=== PATIENT | male | born 1955 | race Caucasian/White ===

== ENCOUNTER → 2020-04-16 | Outpatient (CLI) | payer BC ==
--- NOTE | 2020-04-16 14:10 | Diagnostic Imaging Report ---
EXAMINATION: PA and lateral chest at 1:40 p.m. INDICATION: Dyspnea. FINDINGS: The heart size is within normal limits and stable when compared to 02/20/2007. The lungs are generally clear. There is no evidence for failure, pneumonia or for a pleural effusion. The mediastinum is not widened. The osseous structures are intact. IMPRESSION: There is no evidence for active disease. Dictated by: Dictated on workstation # [id number]
== END ==
LOC: RAD 13:18
PROVIDERS: ATTEND Internal Medicine
DX: R06.00 Dyspnea, unspecified (principal); R05 Cough
CPT/HCPCS: 71046

== ENCOUNTER → 2020-05-06 | Outpatient (CLI) | payer BC ==
--- NOTE | 2020-05-06 09:25 | Diagnostic Imaging Report ---
INDICATION: Right lower lobe pneumonia. EXAMINATION: PA and lateral views of the chest. FINDINGS: The heart size and vascularity are normal. Lungs are clear. There is no effusion. There is no acute bony abnormality. IMPRESSION: No acute abnormality is seen. There is no change from 04/16/2020. Dictated by: Dictated on workstation # [id number]
== END ==
LOC: RAD 08:53
PROVIDERS: ATTEND Internal Medicine
DX: J18.1 Lobar pneumonia, unspecified organism (principal)
CPT/HCPCS: 71046

== ENCOUNTER → 2020-07-22 | Outpatient (CLI) | payer BC ==
--- NOTE | 2020-07-22 11:15 | Diagnostic Imaging Report ---
HISTORY: Pneumonia. COMPARISON: 05/06/2020. TECHNIQUE: Two views of the chest. FINDINGS: There is elevation of the right hemidiaphragm. There are chronic-appearing interstitial opacities in the lungs, likely chronic fibrotic changes. No new consolidation is seen. There is no pleural effusion or pneumothorax. The cardiac silhouette is normal in size. IMPRESSION: 1. Chronic findings in the lungs with no acute pulmonary abnormality seen. Dictated by: Dictated on workstation # [id number]
== END ==
LOC: RAD 10:31
PROVIDERS: ATTEND Internal Medicine
DX: J18.1 Lobar pneumonia, unspecified organism (principal); E78.2 Mixed hyperlipidemia; R73.03 Prediabetes
CPT/HCPCS: 71046

== ENCOUNTER → 2020-08-03 | Outpatient (CLI) | payer BC ==
--- NOTE | 2020-08-03 12:47 | Diagnostic Imaging Report ---
EXAMINATION: CT chest without contrast. TECHNIQUE: Multiple contiguous axial images were obtained through the chest without the use of intravenous contrast. All CT scans use one or more of the following dose optimizing techniques: automated exposure control, MA and/or KvP adjustment based on patient size and exam type or iterative reconstruction. HISTORY: Pneumonia. COMPARISON: None available. FINDINGS: There is mild emphysema. Peribronchial vascular thickening and septal line thickening in the lung bases is consistent with mild pulmonary edema. No consolidation is seen to indicate pneumonia. No pleural effusion. No pneumothorax. No suspicious nodules. There is no axillary or supraclavicular lymphadenopathy. There is no mediastinal lymphadenopathy. Left ventricle is mildly dilated. There are moderate coronary artery calcifications. No pericardial effusion. Ascending aorta is 4.1 cm, upper limits of normal in caliber. Limited views of the upper abdomen are unremarkable. There are no suspicious osseous lesions. IMPRESSION: 1. Emphysema with superimposed mild pulmonary edema. 2. No consolidation to indicate pneumonia. Dictated by: Dictated on workstation # [id number]
== END ==
LOC: RAD 08:15
PROVIDERS: ATTEND Internal Medicine
DX: J43.9 Emphysema, unspecified (principal); J81.1 Chronic pulmonary edema; J18.1 Lobar pneumonia, unspecified organism
CPT/HCPCS: 71250

== ENCOUNTER → 2020-08-13 | Outpatient (CLI) | payer BC | LOC: CARD 13:15 | PROVIDERS: ATTEND Internal Medicine | DX: I35.1 Nonrheumatic aortic (valve) insufficiency (principal) | CPT/HCPCS: 93306 ==

== ENCOUNTER → 2020-08-25 | Outpatient (CLI) | payer BC ==
[~2020-08-25] MED LIST: RT-ALBUTEROL SULF 2.5 MG/3 ML PRE-MIX VIAL INH ONE
== END ==
LOC: RT 07:44
PROVIDERS: ATTEND Internal Medicine
DX: R06.00 Dyspnea, unspecified (principal)
CPT/HCPCS: 94060; 94726; 94729

== ENCOUNTER → 2020-11-03 | Outpatient (CLI) | payer BC ==
[2020-11-03] MEDS: RT-ALBUTEROL SULF 2.5 MG/3 ML PRE-MIX VIAL INH ONE (10:13)
== END ==
LOC: RT 09:02
DX: J84.10 Pulmonary fibrosis, unspecified (principal); J84.9 Interstitial pulmonary disease, unspecified
CPT/HCPCS: 94060; 94726; 94729

== ENCOUNTER 2020-12-10 15:11 | Outpatient (RCR) | payer BC | END 2020-12-10 15:55 | disposition home or self-care (01) | PROVIDERS: ATTEND Internal Medicine Critical Care Medicine | DX: J84.9 Interstitial pulmonary disease, unspecified (principal); J84.10 Pulmonary fibrosis, unspecified; R09.02 Hypoxemia ==

== ENCOUNTER 2021-01-03 09:50 | Emergency (ER) | payer BC ==
[~2021-01-03] VITALS: Ht 167.7 cm; Wt 80.9 kg
--- OUTSIDE RECORDS SUMMARY | 2021-01-03 10:02 | XMS REPORT | Clinical Summary ---
Author Author [facility] Organization [facility] Address Unknown Phone Unavailable Care Team Providers Care Allergy And Immunology Chief Name Role Phone Sedrick Ortiz MD Unavailable No Pcp, Na PCP Unavailable Source Comments Some departments are not documenting in the electronic medical record. If you d o not see the information that you expected, contact Release of Information in [facility] [employer] Information Management department at [phone] for further assistan ce in locating additional records.[facility] Allergies No Known Active Allergies Medications End Date Status Medication Sig Dispensed Refills Start Date Active gemfibrozil (LOPID) 600 Take 1,200 mg 0 mg tablet by mouth twice daily. Active niacin 750 mg TbER Take 2,500 mg 0 by mouth. Active aspirin 81 mg chewable Take 81 mg by 0 tablet mouth daily. Active LORATADINE (CLARITIN PO) Take by 0 mouth. Active DOCOSAHEXANOIC ACID/EPA Take by 0 (FISH OIL PO) mouth. Active vitamins, B complex tab Take 1 tablet 0 by mouth daily. 12/08/2020 Discontinued (Patient's Glynn ce) vitamins, multi Take 1 Tab by 0 w/minerals tablet mouth daily. Active Problems Problem Noted Date Exposure to environmental hazard 12/09/2020 Hiatal hernia 12/09/2020 ILD (interstitial lung disease) 12/09/2020 Rotator cuff tear, right 02/01/2015 Pulmonary fibrosis Encounters Care Team Description Date Type Specialty Charles Tran MD Hemoptysis 01/03/2021 Telephone Pulmonology Pedro Salazar MD BRONCHOSCOPY DIAGNOSTIC WITH CELL WASHIN G - FLEXIBLE 12/24/2020 Surgery Richard Ordonez MD 12/24/2020 Anesthesia Event Pedro Salazar MD Pulmonary fibrosis ([facility]) 12/24/2020 Hospital Encounter 12/24/2020 Travel Griffin Tripp MD 12/21/2020 Hospital Lab Encounter Griffin Tripp MD Encounter for screening laboratory testi ng for COVID-19 virus in asymptomatic patient 12/21/2020 Nurse Only Urgent Care 12/21/2020 Travel Griffin Tripp MD Procedure (Bronch w/BAL, TBB w/Cryobiops y and Envisia testing) 12/09/2020 Telephone Pulmonology Griffin Tripp MD Pulmonary fibrosis ([facility]) (Primary Dx); Encounter for screening laboratory testing for COVID-19 virus in asymptomatic patient; Hypersensitivity pneumonitis ([facility]) 12/09/2020 Prep for Case Pulmonology Griffin Tripp MD Pulmonary fibrosis ([facility]); Exposure to environmental hazard; Hiatal hernia; ILD (interstitial lung disease) ([facility]) 12/08/2020 Office Visit Pulmonology Telehealth Griffin Tripp MD Records Request ([facility] ) 12/07/2020 Telephone Pulmonology 11/08/2020 Hospital Radiology Encounter from Last 3 Months Immunizations Name Administration Dates Next Due Surgical History Surgery Date Site/Laterality Comments BRONCHOSCOPY 12/24/2020 Bronchus/N/A BRONCHOSCOPY DI AGNOSTIC WITH CELL WASHING - FLEXIBLE performed by Pedro Salazar M D at [facility] OR BRONCHOSCOPY 12/24/2020 Bronchus/N/A BRONCHOSCOPY WI TH BRONCHIAL ALVEOLAR LAVAGE - FLEXIBLE performed by Pedro Salazar M D at [facility] OR BRONCHOSCOPY 12/24/2020 Bronchus/N/A BRONCHOSCOPY WI TH TRANSBRONCHIAL LUNG BIOPSY - FLEXIBLE - SINGLE LOBE performed by Pedro Armijo MD at [facility] OR BRONCHOSCOPY 12/24/2020 Bronchus/N/A BRONCHOSCOPY WI TH TRANSBRONCHIAL LUNG BIOPSY - FLEXIBLE - EACH ADDITIONAL LOBE perform ed by Pedro Salazar MD at [facility] OR Medical History Medical History Date Comments Pneumonia Seasonal allergic reaction Hypertriglyceridemia Prediabetes Pulmonary fibrosis ([facility]) Family History Medical History Relation Name Comments Cancer Brother Relation Name Status Comments Brother Social History Date Tobacco Use Types Packs/Day Years Used Quit: 2017 Former Smoker Cigarettes 1 42 Smokeless Tobacco: Never Used Tobacco Cessation: Counseling Given: Yes Comments Alcohol Use Standard Drinks/Week Not Currently 0 (1 standard drink = 0.6 o z pure alcohol) Sex Assigned at Date Recorded Male 12/01/2020 7:52 AM CDT Date Recorded COVID-19 Exposure Response 12/24/2020 8:26 AM CDT In the last month, have you been in contact with No / Unsure someone who was confirmed or suspected to have Coronavirus / COVID-19? Last Filed Vital Signs Reading Time Taken Comments Vital Sign 91/63 12/24/2020 11:00 AM CDT Blood Pressure 72 12/24/2020 11:00 AM CDT Pulse 37.1 C (98.7 F) 12/24/2020 11:00 AM CDT Temperature - - Respiratory Rate 92% 12/24/2020 11:00 AM CDT Oxygen Saturation - - Inhaled Oxygen Concentration 80.6 kg (177 lb 11.1 oz) 12/24/2020 8:22 AM CDT Weight 167.6 cm (5' 6") 12/24/2020 8:22 AM CDT Height 28.68 12/24/2020 8:22 AM CDT Body Mass Index Plan of Treatment Health Maintenance Due Date Last Done Comments HIV SCREENING 09/15/1971 DTAP/TDAP VACCINES (1 - 1974 Tdap) HEPATITIS C SCREENING 1974 PHYSICAL (COMPREHENSIVE) 1974 EXAM COLORECTAL CANCER 2006 SCREENING SHINGLES RECOMBINANT 2006 VACCINE (1 of 2) INFLUENZA VACCINE 10/10/2020 12/27/2019, 11/29/2018, 12/14/2017 COVID-19 VACCINE Completed 06/18/2020, 05/21/2020 Procedures Comments Procedure Name Priority Date/Time Associated Diag nosis CHEST SINGLE VIEW Routine 12/24/2020 10:42 AM CDT HC LVL IV SRG PTH, GROSS Routine 12/24/2020 & MICRO 10:30 AM CDT HC NON-ATTENDANT HONOR BAR/THIN PREP Routine 12/24/2020 10:30 AM CDT FLUORO MOBILE IN OR Routine 12/24/2020 10:21 AM CDT CULTURE-TB (AFB) Routine 12/24/2020 10:21 AM CDT CYTOLOGY SPECIMEN LABEL Routine 12/24/2020 9:30 AM CDT HC CELL COUNT Routine 12/24/2020 W/DIFF-FLUIDS 9:30 AM CDT HC CMV DNA QN BY PCR Routine 12/24/2020 9:30 AM CDT HC HSV PCR Routine 12/24/2020 9:30 AM CDT GRAM STAIN 12/24/2020 9:30 AM CDT CULTURE-RESP,LOWER Routine 12/24/2020 W/SENSITIVITY 9:30 AM CDT CULTURE-FUNGAL,OTHER Routine 12/24/2020 9:30 AM CDT BRONCHOSCOPY WITH 12/24/2020 Pulmonary fibrosis (HCC) TRANSBRONCHIAL LUNG 9:13 AM CDT Hypersensitivity BIOPSY - FLEXIBLE - EACH pneumonitis (HCC) ADDITIONAL LOBE BRONCHOSCOPY WITH 12/24/2020 Pulmonary fibrosis (HCC) TRANSBRONCHIAL LUNG 9:13 AM CDT Hypersensitivity BIOPSY - FLEXIBLE - pneumonitis (HCC) SINGLE LOBE BRONCHOSCOPY WITH 12/24/2020 Pulmonary fibrosis (HCC) BRONCHIAL ALVEOLAR LAVAGE 9:13 AM CDT Hypersensit ivity - FLEXIBLE pneumonitis (HCC) BRONCHOSCOPY DIAGNOSTIC 12/24/2020 Pulmonary fib rosis (HCC) WITH CELL WASHING - 9:13 AM CDT Hypersensitivity FLEXIBLE pneumonitis (HCC) BRONCHOSCOPY 12/24/2020 8:57 AM CDT TELEMETRY STRIPS-SCAN 12/24/2020 12:00 AM CDT PROCEDURE RECORD-SCAN 12/24/2020 12:00 AM CDT HC BASIC METABOLIC PANEL Routine 12/21/2020 Pulmo nary fibrosis (HCC) 9:45 AM CDT Hypersensitivity pneumonitis (HCC) HC CBC,AUTOMATED Routine 12/21/2020 Pulmonary fib rosis (HCC) 9:45 AM CDT Hypersensitivity pneumonitis (HCC) COVID-19 (SARS-COV-2) PCR Routine 12/21/2020 [place] unter for screening 9:16 AM CDT laboratory testing for COVID-[address] virus in asymptomatic [address] CHEST EXTERNAL IMAGING Routine 11/08/2020 Diag nosis unknown 12:00 AM CDT from Last 3 Months Results * CHEST SINGLE VIEW (12/24/2020 10:42 AM CDT) Specimen Impressions Performed At Mild bibasilar scarring/fibrosis. Interstitial promin ence in the right midlung [facility] may represent mild postbiopsy hemorrhag e. Finalized by Pedro New M.D. on 2020 10:47 AM. Dictated by Pedro New M.D. on 12/24/2020 10:46 AM. Narrative Performed At Single view [facility] INDICATION: Status post bronchoscopy an d lung biopsy. COMPARISON CHEST FILM: None available FINDINGS: Devices: None Heart And Pulmonary Vasculature: The he art size is normal without pulmonary vascular congestion. Lungs and Pleura: Mild bibasilar scarri ng/fibrosis is noted. There is mild interstitial prominence in the right mi dlung. Elevation or eventration of the right hemidiaphragm is noted. Procedure Note Interface, Radiant Results - 12/24/2020 10:50 AM CDT Single view INDICATION: Status post bronchoscopy and lung biopsy. COMPARISON CHEST FILM: None available FINDINGS: Devices: None Heart And Pulmonary Vasculature: The heart size is normal without pulmonary vascular congestion. Lungs and Pleura: Mild bibasilar scarring/fibrosis is noted. There is mild interstitial prominence in the right midlung. Elevation or eventration of the right hemidiaphragm is noted. IMPRESSION Mild bibasilar scarring/fibrosis. Interstitial prominence in the right midlung may represent mild postbiopsy hemorrhage. Finalized by Pedro New M.D. on 12/24/2020 10:47 AM. Dictated by Pedro New M.D. on 12/24/2020 10:46 AM. Performing Organization Address City/State/ZIP Code P cindy Number [facility] * PATHOLOGY SURGICAL < 5 SPECIMENS (12/24/2020 10:30 AM CDT) PATHOLOGY [facility] Department of Pathology and Laboratory Medicine [address] [place] [address] Surgical Pathology Office: [phone] SURGICAL PATHOLOGY REPORT NAME: CLIVE DAVIDSON SURG PATH #: [id number] MR #: [id number] SPECIMEN CLASS: SR BILLING #: [id number] ALT ID #: LOCATION: [facility] DATE OF PROCEDURE: 12/24/2020 AGE: 65 SEX: M DATE RECEIVED: 12/24/2020 : 1955 TIME RECEIVED: 11:14 PHYSICIAN: PEDRO SALAZAR DATE OF REPORT: 12/28/2020 COPY TO: EVELIO HARDING MD DATE OF PRINTIN12/28/2020 ############################## ############################## ############ Final Diagnosis: A. 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 See comment. Comment: Sections show interstitial fibrosis with a patchy distribution, architectural distortion with focal microscopic honeycomb change, and numerous fibroblast foci. Interstitial inflammation is mild, without germinal center formation. A cluster of multinucleated giant cells with cholesterol clefts is present within the peribronchiolar interstitium. Pulmonary arteries show mild-moderate myointimal thickening. There is no organizing pneumonia, hyaline membranes, or polarizable material. Special stains for GMS and AFB on block A2 are negative for micro-organisms. This pattern of lung pathology is consistent with usual interstitial pneumonia (UIP). However, the presence of an interstitial poorly formed non-necrotizing granuloma together with his exposure history raise consideration for fibrotic hypersensitivity pneumonitis (HP). Bronchiolocentricity is difficult to determine in small biopsies, but there is no prominent cellular bronchiolitis or extensive peribronchiolar metaplasia to further support HP. Attestation: By this signature, I attest that I have personally formulated the final interpretation expressed in this report and that the above diagnosis is based upon my examination of the slides and/or other material indicated in this report. +++ +++ mr/12/24/2020 ############################## ############################## ############ Material Received: A: RLL biopsy History: 65-year-old male being evaluated for interstitial lung disease. In March 2020, he developed a severe respiratory infection. He continued to be symptomatic with chronic cough symptoms until June.He received multiple rounds of antibiotics and steroids.COVID-19 testing was negative. Former smoker (40 pack years). Environmental exposure to molds (positive HP panel). CT chest10/29/2020 showsinterstitial lung disease in a pattern consistent with probable UIP. Gross Description: A. Received in formalin labeled "RLL biopsy" is a 1.0 x 1.0 x 0.5 cm aggregate of irregular, pale brewer soft tissue fragments. The specimen is entirely submitted in cassettes A1 and A2. The specimen is placed in formalin at 10:00 on 12/24/2020. (mpt) mt/12/24/2020 Specimen Other (Specify) Performing Organization Address City/State/ZIP Code P cindy Number [facility] [address] [place] [address] * CYTOLOGY BRONCH LAVAGE (12/24/2020 10:30 AM CDT) Cytology [facility] www[employer] Department of Pathology and Laboratory Medicine [address] [place] [id number] Surgical Pathology Office: [phone] CYTOLOGY REPORT NAME: CLIVE DAVIDSON CYTOLOGY #: [id number] MR #: [id number] ALT ID #: BILLING #: [id number] LOCATION: [facility] DATE OF PROCEDURE: 12/24/2020 AGE: 65 SEX: M DATE RECEIVED: 12/24/2020 : 1955 TIME RECEIVED: 12:52 PHYSICIAN: EVELIO HARDING MD DATE OF REPORT: 12/28/2020 COPY TO: PEDRO SALAZAR DATE OF PRINTIN12/28/2020 Material Received: A: Bronchial Alveolar Lavage - RUL History: 65 year old male with a history of interstitial lung disease Gross Description: (1 Thin Prep) Received 12 ml clear colorless fluid ############################## ############################## ############ Final Diagnosis: A. Bronchial Alveolar Lavage - RUL: Negative for malignant cells. Alveolar macrophages present. Attestation: By this signature, I attest that I have personally formulated the final interpretation expressed in this report and that the above diagnosis is based upon my examination of the slides and/or other material indicated in this report. +++Electronically Signed Out By+++ rl/12/26/2020 Interpreted by: MD Barry Guerrero MD, Fellow Specimen Bronchial Alveolar Lavage,RUL Performing Organization Address City/State/ZIP Code P cindy Number [facility] [address] [place] [address] * FLUORO MOBILE IN OR (12/24/2020 10:21 AM CDT) Specimen Narrative Performed At This order has been auto finalized and does not conta in a result. [facility] Performing Organization Address City/State/ZIP Code P cindy Number [facility] * CYTOLOGY SPECIMEN LABEL (12/24/2020 9:30 AM CDT) Specimen Other (Specify) Performing Organization Address City/State/ZIP Code P cindy Number [facility] * HERPES SIMPLEX PCR - NON-BLOOD (12/24/2020 9:30 AM CDT) Specimen, BRONCHOALVEOLAR LAVAGE [facility] Herpes Herpes Simplex HSV 1 and 2 NOT DETECTED HSVND-HSV 1 and 2 [facility] PCR Comment: NOT DETECTED [employer] HSV 1&2 Assay is a qualitative real-time PCR test for the direct detection and differentiation of HSV 1 and 2 DNA. This assay is FDA approved for testing cutaneous or mucocutaneous lesions from symptomatic patients. Performance on modifications of this test as well as other specimen types has been validated by the Department of Pathology and Laboratory Medicine at the [facility]. Specimen Bronchoalveolar Lavage Performing Organization Address City/State/ZIP Code P cindy Number [facility] [address] [place] [address] * GRAM STAIN (12/24/2020 9:30 AM CDT) Battery Name GRAM STAIN [facility] Report Status FINAL 12/24/2020 [facility] Specimen BRONCHOALVEOLAR LAVAGE LUNG [facility] Description RUL Special No special requests [facility] Requests Gram Stain NO NEUTROPHILS SEEN [facility] Gram Stain NO ORGANISMS SEEN [facility] Specimen Bronchial Alveolar Lavage - Lung RUL Performing Organization Address City/[facility]/ZIP Code P cindy Number [facility] [address] [place] [id number] * CULTURE-RESP,LOWER W/SENSITIVITY (12/24/2020 9:30 AM CDT) Battery Name LOWER RESP CULTURE [facility] Report Status FINAL 12/26/2020 [facility] Specimen BRONCHOALVEOLAR LAVAGE LUNG [facility] Description RUL Special No special requests [facility] Requests Direct Gram NO NEUTROPHILS SEEN [facility] Stain Direct Gram NO ORGANISMS SEEN [facility] Stain Culture NO GROWTH 2 DAYS [facility] Specimen Bronchial Alveolar Lavage - Lung RUL Performing Organization Address [facility] P cindy Number [facility] [address] [place] [address] * CMV QUANT PCR-FLUID (12/24/2020 9:30 AM CDT) Specimen, CMV FLUID [facility] BRONCHOALVEOLAR LAVAGE CMV by CMV DNA NOT DETECTED [facility] PCR-fluid CMV This assay is an off label use [facility] Comment-Fluid of the [employer] y for detection of CMV in fluids and has not been approved by the US Food and Drug Administration. The performance characteristics were determined by the [facility]. The lower limit of detection is 50IU/mL. Specimen Fluid - Fluid Performing Organization Address City/[facility]/ZIP Code P cindy Number [facility] [address] [place] [address] * CELL COUNT W/DIFF-FLUIDS (12/24/2020 9:30 AM CDT) Segmented 1Comment: CELLS MODERATELY % [facility] Neutrophils, DEGENERATED/INTERPRET WITH Fluid CAUTION/983 Lymphocytes,Flu 1 % [facility] id Monocyte/Histo, 98 % [facility] Fluid Fluid Source FLUID MAIN LAB BRONCHOALVEOLAR LAVAGE Pathology NO DIAGNOSTIC ABNORMALITIES [facility] Interpretation, Fluid Pathologist INTERPRETED BY DANA ESPINAL ERLIN N LAB Signature By the PATH SIGNATURE ABOVE , I attest that I have personally formulated the final interpretation expressed in this report and that the above diagnosis is based upon my examination of the slides and/or other material indicated in this report. Specimen Fluid - Bronchoalveolar Lavage Performing Organization Address City/State/ZIP Code P cindy Number [facility] [address] [place] [address] * BRONCHOSCOPY (12/24/2020 8:57 AM CDT) Provation Patient Name: Clive ESPINAL OTHER Report Procedure Date: 12/24/2020 RESULTS 8:57 AM CSN: [id number] Date of : 1955 Gender: Male Attending Physician: Pedro Salazar MD Procedure: Bronchoscopy Indications: Interstitial lung disease Providers: Pedro Salazar MD (Doctor), Evelio Harding (Fellow), Nadia Sultana (Nurse), Shiraz John (Manager [place]) Referring Physician: Griffin Tripp MD Medications: Tetricaine 0.25%/Epinephrine 0.003% 10 mL nebulizer, Tetricaine 0.25%/Epinephrine 0.003% topically on airway mucosa 10 mL Complications: No immediate complications Findings: The bronchoscope was advanced until wedged at the desired location for bronchoalveolar lavage. BAL was performed in the right upper lobe of the lung and sent for cell count, bacterial culture, viral smears & culture, and fungal & AFB analysis and cytology. 120 mL of fluid were instilled. 50 mL were returned. The return was clear. There were no mucoid plugs in the return fluid. Multiple specimens were obtained, and each sent for analysis. Transbronchial biopsies of an area of infiltration were performed in the right lower lobe intially using forceps for the [employer] genomic customer specialist and three samples were obtained. Forceps then were extended into the RUL and two samples were obtained and sent for [employer] genomic customer specialist. Following completion of the biopsies for [employer] customer specialist, a pediatric Mikey bronchial balloon was placed in the RLL take-off and inflated with 5-6cc of air. Inflation of the bronchial verna cuff led to complete occlusion of the RLL take-off. Subsequent, the 1.9mm cryoprobe was then utilized to obtain transbronchial cryobiopsies from the RLL. Two samples were obtained and these were sent for histopathology examination. Following each biopsy pass, the balloon was inflated to prevent hemorrhage from spreading to the remainder of the lung. After the second pass, moderate bleeding occurred which was easily controlled by inflation of the bronchial balloon. 10cc 1:10 TXA solution was injected beyond the balloon to assist with intraluminal coagulation. Hemostasis was obtained after several minutes and the balloon deflated. Residual clot was suctioned from the airway and the large airways were cleared. All transbronchial biopsies were guided by fluoroscopy. Impression: - Interstitial lung disease - Transbronchial lung biopsies were performed in the RUL and RLL and sent for [employer] genomic customer specialist. - Transbronchial cryobiopsies were obtained in the RLL and sent for histopathology examination. - Bronchoalveolar lavage was performed in the RUL. Estimated Blood Loss: Estimated blood loss: none. Recommendation: - Await BAL, biopsy and cytology results. Scope In: 9:27:47 AM Scope Out: 10:13:04 AM Procedure Code(s): --- Professional --- 67661, Bronchoscopy, rigid or flexible, including fluoroscopic guidance, when performed; with transbronchial lung biopsy(s), single lobe 80839, Bronchoscopy, rigid or flexible, including fluoroscopic guidance, when performed; with bronchial alveolar lavage CPT copyright 2020 [employer]. All rights reserved. The codes documented in this report are preliminary and upon certified procedural coder review may be revised to meet current compliance requirements. Attending Participation: I was present and participated during the entire procedure, including non-fitch portions. MD Pedro Abdul MD 12/24/2020 11:35:45 AM The attending physician has electronically signed and finalized this document. MD Evelio Martin, 12/24/2020 10:29:05 AM Number of Addenda: 0 Note Initiated On: 12/24/2020 8:57 AM Specimen Performing Organization Address City/State/ZIP Code P cindy Number [facility] * TELEMETRY STRIPS-SCAN (12/24/2020 12:00 AM CDT) Narrative Performed At This result has an attachment that is n ot available. Ordered by an unspecified provider. * PROCEDURE RECORD-SCAN (12/24/2020 12:00 AM CDT) Narrative Performed At This result has an attachment that is n ot available. Ordered by an unspecified provider. * CBC (12/21/2020 9:45 AM CDT) White Blood 7.5 4.5 - 11.0 K/UL [facility] Cells RBC 5.16 4.4 - 5.5 M/UL [facility] Hemoglobin 16.3 13.5 - 16.5 GM/DL [facility] Hematocrit 47.5 40 - 50 % [facility] MCV 91.9 80 - 100 FL [facility] MCH 31.6 26 - 34 PG [facility] MCHC 34.3 32.0 - 36.0 G/DL [facility] RDW 12.7 11 - 15 % [facility] Platelet Count 283 150 - 400 K/UL [facility] MPV 7.8 7 - 11 FL [facility] Specimen Blood Performing Organization Address City/[facility]/ZIP Code P cindy Number [facility] [address] [place] [address] * BASIC METABOLIC PANEL (12/21/2020 9:45 AM CDT) Sodium 137 137 - 147 MMOL/L [facility] Potassium 4.3 3.5 - 5.1 MMOL/L [facility] Chloride 105 98 - 110 MMOL/L [facility] CO2 22 21 - 30 MMOL/L [facility] Anion Gap 10 3 - 12 [facility] Glucose 97 70 - 100 MG/DL [facility] Blood Urea 8 7 - 25 MG/DL [facility] Nitrogen Creatinine 0.77 0.4 - 1.24 MG/DL [facility] Calcium 9.8 8.5 - 10.6 MG/DL [facility] eGFR Non >60 >60 mL/min [facility] Comment: [employer] The eGFR is not validated f or use in drug dosing adjustments. Continue to use estimated creatinine clearance per dosing reference text. Please contact the Clinical Pharmacist for questions. eGFR >60 >60 mL/min [facility] [employer] Comment: The eGFR is not validated for use in drug dosing adjustments. Continue to use estimated creatinine clearance per dosing reference text. Please contact the Clinical Pharmacist for questions. Specimen Blood Performing Organization Address City/State/ZIP Code P cindy Number [facility] [address] [place] [address] * COVID-19 (SARS-COV-2) PCR (12/21/2020 9:16 AM CDT) COVID-19 FLOCKED SWAB [facility] (SARS-CoV-2) NASOPHARYNGEAL PCR Source COVID-19 NOT DETECTED DN-NOT DETECTED [facility] (SARS-CoV-2) Comment: PCR This assay is designed to detect the N and/or RdRp genes of SARS-CoV-2 using nucleic acid amplification. A "Not Detected" result does not preclude the possibility of SARS-CoV-2 infection since the adequacy of sample collection and/or low viral burden may result in the presence of viral nucleic acids below the analytical sensitivity of this test method. Test results should be used along with other clinical and laboratory data in making the diagnosis. Test parameters have not been validated for screening in asymptomatic patients. This test is authorized for use under the FDA Emergency Use Authorization. Performance characteristics have been verified by the [facility]. Fact sheet for providers: https://www.fda.gov/media/4177 78/download Fact sheet for patients: https://www.fda.gov/media/3157 81/download Specimen Flocked Swab - Nasopharyngeal Performing Organization Address City/State/ZIP Code P cindy Number [facility] [address] [place] [address] * CT CHEST EXTERNAL IMAGING (11/08/2020 12:00 AM CDT) Specimen Narrative Performed At This order has been auto finalized and does not contain a result. 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
--- OUTSIDE RECORDS SUMMARY | 2021-01-03 10:02 | XMS REPORT | Encounter Summary ---
Author Author [facility] Organization [facility] Address Unknown Phone Unavailable Care Team Providers Care Employment Programs Analyst Name Role Phone Sedrick Ortiz MD Unavailable No Pcp, Na PCP Unavailable Encounter Details Care Team Description Date Type Department 12/24/2020 Travel Social History Date Tobacco Use Types Packs/Day Years Used Quit: 2016 Former Smoker Cigarettes 1 42 Smokeless Tobacco: Never Used Comments Alcohol Use Standard Drinks/Week Not Currently 0 (1 standard drink = 0.6 o z pure alcohol) Sex Assigned at Date Recorded Male 12/01/2020 7:52 AM CDT Date Recorded COVID-19 Exposure Response 12/24/2020 8:26 AM CDT In the last month, have you been in contact with No / Unsure someone who was confirmed or suspected to have Coronavirus / COVID-19? documented as of this encounter Plan of Treatment Not on filedocumented as of this encounter Visit Diagnoses Not on filedocumented in this encounter Additional Health Concerns Assessment Noted Time A fall risk assessment has been completed for the pat ient 12/24/2020 8:33 AM CDT PHQ-2 Depression Total Score: 0 12/08/2020 11:31 AM CDT documented as of this encounter
--- OUTSIDE RECORDS SUMMARY | 2021-01-03 10:02 | XMS REPORT | Encounter Summary ---
Author Author [facility] Organization [facility] Address Unknown Phone Unavailable Care Team Providers Care Top Screw Name Role Phone Sedrick Ortiz MD Unavailable No Pcp, Na PCP Unavailable Reason for Visit * Reason Onset Date Comments Hemoptysis 01/03/2021 Encounter Details Care Team Description Date Type Department Charles Tran MD [address] [facility] [address] [place] [address] Hemoptysis 01/03/2021 Telephone Pulmonology: [facility] [address] [address] Social History Date Tobacco Use Types Packs/Day [...] / COVID-19? documented as of this encounter Miscellaneous Notes * Telephone Encounter - Josefina Mahajan RN - 01/03/2021 9:16 AM CDT Images from the original note were not included. Patient's called stating patient was continuing to cough up blood following his 12/24/20 bronchoscopy. The frequency had decreased but this morning he "sp it up fresh blood and amount is more". Per chart notes, they contacted the docto r outdoor recreation specialist this AM. Message sent to Dr Nicholas. Returned call and spoke to lino torres's . He did have a second episode of spitting up blood but it was darker a nd less. No other symptoms. Per Dr Nicholas, patient should go to ED to be evaluat ed. Patient lives in [facility] and discussed going locally to be evaluated. Patient's voiced understanding of the plan and will call with cindy and genevieve palafox to have any reports forwarded to pulmonary. Josefina Mahajan RN * Telephone Encounter - Charles Tran MD - 01/03/2021 5:38 AM CDT I received a call via the on-call pulmonology pager from Mr. Landers. He had a cryob iopsy and BAL as well as transbronchial forceps biopsies for [facility] testing on 12/24. Since the procedure, he has had hemoptysis each day. It has usually been only a few times per day and a dime sized amount. This morning, he had a larger amount. He estimates it was a tablespoon and a half and appeared fresh and brigh t red. He is not having dyspnea or other symptoms. Certainly, it is unusual to still be having hemoptysis from the procedure and I am concerned about the amount this morning. Fortunately, he is otherwise asympto matic. I, or a colleague, will talk to Dr. Nicholas later this morning (as it's cur rently 5:50 AM) for advice on further recs. I think repeat bronchoscopy for airw ay inspection vs continued close monitoring or perhaps a CTA would be reasonable , but I will defer to his expertise as the situation is not currently emergent. I advised him to proceed to the emergency room if he has worsened hemoptysis or develops any other symptoms. documented in this encounter Plan of Treatment Not on filedocumented as of this encounter Visit Diagnoses Not on filedocumented in this encounter Additional Health Concerns Assessment Noted Time A fall risk assessment has been completed for the pat ient 12/24/2020 8:33 AM CDT PHQ-2 Depression Total Score: 0 12/08/2020 11:31 AM CDT documented as of this encounter
--- OUTSIDE RECORDS SUMMARY | 2021-01-03 10:03 | XMS REPORT | Encounter Summary ---
Author Author [facility] Organization [facility] Address Unknown Phone Unavailable Care Team Providers Care Options Advisor Name Role Phone Serdick Ortiz MD Unavailable No Pcp, Na PCP Unavailable Reason for Visit * Reason Comments Shortness of Breath * Consult, Test & Treat (Routine) Referred By Contact Referred To Contact Status Reason Specialty Diagnoses / Procedures Jeffrey Lobo MD [address] [place] [address] Pending Review Pulmonology Diagnoses ILD (interstitial lung disease) (HCC) Pulmonary fibrosis (HCC) Chronic cough Encounter Details Care Team Description Date Type Department Griffin Tripp MD [address] [facility] [address] [place] [address] Pulmonary fibrosis (HCC); Exposure to environmental hazard; Hiatal hernia; ILD (interstitial lung disease) (HCC) 12/08/2020 Office Visit Pulmonology: Chu estrada, [facility] [address], [address] [address] Social History Date Tobacco Use Types Packs/Day Years Used Quit: 2017 Former Smoker Cigarettes 1 42 Smokeless Tobacco: Never Used Tobacco Cessation: Counseling Given: Yes Comments Alcohol Use Standard Drinks/Week Not Currently 0 (1 standard drink = 0.6 o z pure alcohol) Sex Assigned at Date Recorded Male 12/01/2020 7:52 AM CDT documented as of this encounter Last Filed Vital Signs Reading Time Taken Comments Vital Sign - - Blood Pressure - - Pulse - - Temperature - - Respiratory Rate - - Oxygen Saturation - - Inhaled Oxygen Concentration 82.6 kg (182 lb) 12/08/2020 11:24 AM CDT Weight 167.6 cm (5' 6") 12/08/2020 11:24 AM CDT Height 29.38 12/08/2020 11:24 AM CDT Body Mass Index documented in this encounter Patient Instructions * Patient Instructions* Rian Moran RN - 12/08/2020 3:00 PM CDT Clinic Visit Summary: You will be contacted to schedule Bronchoscopy with biopsy. Next clinic visit follow up with Dr. Tripp recommended on January 19. Please contact Pulmonary Nurse Coordinator with signs and symptoms of worsening productive cough with thick secretions, blood in sputum, chest tightness/pain, s hortness of breath, fever, chills, night sweats, or any questions or concerns. Pulmonary RN Coordinator - Rian Moran RN [phone] [phone] For refills on medications, please have your pharmacy fax a refill authorization request form to our office at Fax) [phone]. Please allow at least 3 busine ss days for refill requests. If you have a question or concern about oxygen equipment please contact your oxy gen supplier ([employer]) before calling our office. For urgent issues after business hours/weekends/holidays call [phone] and r equest for the information clerk cashier to be paged documented in this encounter Progress Notes * Griffin Tripp MD - 12/08/2020 3:00 PM CDT Images from the original note were not included. Obtained patient's verbal consent to treat them and their agreement to [facility] policy and NPP via this telehealth visit during the Coronavirus [facility] Start Time: 15:00 End Time: 16:00 I spent 25 minutes in noncontact time reviewing outside records including clinic notes, lab studies, pulmonary function testing, and personally reviewing chest CT imaging as noted above. Completion of documentation: 12 minutes Total time: 97 minutes Referring Physician: Jeffrey Lobo MD Date of Service: 12/08/2020 Subjective: Ravi Landers is a 65 y.o. male. History of Present Illness This is a 65 y.o. year old male who presents to the [facility] for further evaluation. To summarize his history, in March 2020, he developed a severe respiratory inf ection. He continued to be symptomatic with chronic cough symptoms until June. He received multiple rounds of antibiotics and steroids. Covid testing was ne gative on multiple occasions. His cough gradually improved, but remained interm ittent. Given his persistent symptoms, he was referred to pulmonary for further evaluation. Chest CT imaging was obtained in October, showing interstitial lung disease with a probable UIP pattern. Environmental exposures were reviewed, wi th no obvious exposure. He had no symptoms suggestive of a collagen vascular di sease. He denied any symptoms suggestive of GERD. This raised potential concer n for idiopathic pulmonary fibrosis. He was subsequently referred to the [facility] for further evaluation. At the initial visit in the ILD Clinic, respiratory symptoms have improved ov er time. His cough is probably only about 5% of what it was at its worst earlie r this year. He is currently walking 5 to 6 miles per day. He has not resumed his usual exercise routine, and he has not gone back to playing golf. The cough is generally nonproductive. Screened for autoimmune symptoms that might suggest an autoimmune featured inter stitial lung disease was as follows: - Denies arthralgias or synovitis. - Denies significant sicca symptoms. - Denies oral or genital ulcers - Denies GERD symptoms, and/or food sticking to suggest esophageal dysphagia. - Denies raynaud's phenomenon - Denies sclerodactyly, or hyperkeratosis. - Denies any muscle weakness or tenderness. - Denies any significant skin rashes or ulcerations. Screen for environmental exposures that might suggest a chronic hypersensitivity pneumonitis was as follows: - Denies birds in the home. - They have used a down comforter for the past 2 years - Denies routine exposure polyurethane or isocyanate. - Denies a history of water damage in the home. - He does endorse water damage in his building at work. It was built in the , and they have had water leaks on multiple occasions. He has not seen suzanne s mold growth, and he has not necessarily noted musty smells, but water damage h as been an issue on multiple occasions. - He does use a humidifier during the winter months. They change this out about every 2 years. They did change the humidifier sometime over this past winter. - Denies the use of a hot tub. - They do bring their outdoor plants into the house with multiple plants all ove r the kitchen during the winter months. - Doesn't live near any industrial or agricultural facilities. - There are no obvious exposures to any other significant respiratory toxins. Potential drug exposures were also reviewed to exclude a drug induced cause: - Denies the use of chronic nitrofurantoin, methotrexate or amiodarone. - Denies radiation exposure. Features of a genetic form of pulmonary fibrosis or a short telomere syndrome wa s also reviewed: - Denies premature whitening/graying of hair. - Denies family members with early whitening/graying of hair. - Denies family history of pulmonary fibrosis. - Denies family history of cirrhosis. - Denies family history of leukemia, lymphoma, or myelodysplasia Medical History: Diagnosis Date Hypertriglyceridemia Pneumonia Prediabetes Pulmonary fibrosis (HCC) Seasonal allergic reaction SOCIAL HISTORY: Former Smoker. 40 pack years. Quit 2017. He denies significan t alcohol or illicit substances. FAMILY HISTORY: History pertinent to ILD as noted above.. Review of Systems A full 14 point review of systems was performed and is as above or is unremarkab le. Objective: aspirin 81 mg chewable tablet Take 81 mg by mouth daily. DOCOSAHEXANOIC ACID/EPA (FISH OIL PO) Take by mouth. gemfibrozil (LOPID) 600 mg tablet Take 1,200 mg by mouth twice daily. LORATADINE (CLARITIN PO) Take by mouth. niacin 750 mg TbER Take 2,500 mg by mouth. vitamins, B complex tab Take 1 tablet by mouth daily. Vitals: 12/08/20 1124 Weight: 82.6 kg (182 lb) Height: 167.6 cm (66") PainSc: Zero Body mass index is 29.38 kg/m. Physical Exam Telehealth exam GENERAL: Alert and Pleasant, No Distress HEENT: EOMI LUNGS: No labored breathing, no cough ABDOMEN: Nonobese EXTREMITIES: Normal muscle bulk, No active Raynaud's, No tenosynovitis, or scler odactyly. No edema. SKIN: No rashes. No ulcers. No hyperkeratosis on the lateral edges of the finge rs NEURO: CN 3-12 intact, Normal mentation REVIEW OF DATA: Pulmonary Function Tests 10/18/2020: FVC 2.69 L, 82% predicted FEV1 2.15 L, 82 % predicted FEV1/FVC 0.80, 100% predicted TLC 4.29 L, 79% predicted DLCO 9.1, 43% predicted IMPRESSION: Mild Restrictive Defect with severe impairment in diffusing capacity Exercise oximetry 10/18/2020: Oxygen desaturation 84% after 1 minute. He was placed on 2 L oxygen and maintai cait SPO2 greater than 92%. 6-minute walk test 10/18/2020: 864 feet Chest Imaging: Chest CT 10/29/2020: 1. Interstitial lung disease in a pattern consistent with probable UIP. Fibros is is most pronounced in the right lower lobe with bilateral traction bronchiect asis. 2. Mild paraseptal and centrilobular emphysema. 3. Atherosclerotic disease. 4. No acute cardiopulmonary findings. Lab Data: Labs 10/18/2020: TRISHA negative RF negative Anti-CCP negative ANCA negative Anti-Scl70 negative Anti-SS-A/SS-B negative Aldolase negative CK 205 CRP negative ESR negative BRUNO negative Myositis antibody panel negative HP Panel positive: Cladosporium 85.4 Phoma 20.3 Penicillium 41.1 Assessment and Plan: This is a 65 y.o. male with interstitial lung disease who presents to the [facility] for further evaluation. Diagnosis: Pending MDD Review Past Treatment: None Current Treatment: None Interstitial Lung Disease (HCC): Pulmonary Fibrosis: I reviewed the prior CT imaging, and the imaging features meet criteria for prob able usual interstitial pneumonitis. However, I do not appreciate any definite traction bronchiectasis. There are areas of traction bronchiolectasis in the lo wer lungs, along with basilar, subpleural reticulation greater on the right than the left lung. There are areas of groundglass opacity and mosaic attenuation, but not to the degree that would be typical for a hypersensitivity pneumonitis. Nonetheless, a fibrotic hypersensitivity pneumonitis remains in the differential diagnosis given the UIP pattern without traction bronchiectasis. He does have a number of potential environmental exposures that would put him at risk for hy persensitivity pneumonitis. That being said, idiopathic pulmonary fibrosis is s till the leading diagnosis. He had an exceptional work-up excluding any type of autoimmune featured process. We discussed his various environmental exposures in light of his hypersensitivit y pneumonitis panel showing reactivity to various mold species including Cladosp orium, penicillium, and Phoma species. He uses a bedside humidifier during the winter months, although they are changing out the humidifier every 2 years, mariam ng this a less likely antigenic source. They also use a down comforter during winter months, and have done so for a few years, which does increase the like lihood of a goose down hypersensitivity pneumonitis. They also bring outdoor pl ants into the home during the winter months, which could potentially be a source of plant-based molds inducing the equivalent of a greenhouse hypersensitivity p neumonitis. The most likely exposure though is probably coming from his workpla ce. The building that he has worked in for a number of years has had water evangelina ge and water leaks on multiple occasions. In light of the environmental exposures, I think we do need to proceed with amee tional work-up. We discussed proceeding with bronchoscopy with BAL. If the lymp hocyte count on cell count or flow cytometry is >20% there would be concern for a more inflammatory interstitial lung disease, such as a chronic hypersensitivity pneumonitis rather than IPF. Considering that symptoms worsened over the winter months, and have now resolved through the course of the summer and fall, it is possible that the exposure is more seasonal. Since they use the down comforter in the winter, humidifier in winter, plants in the winter, and probably in his workplace, the heating syste m will circulate mold spores from the basement during the winter, he may not hav e an active exposure right at this moment, and as such he would not demonstrate an active lymphocytosis. Therefore, I do think biopsy would at diagnostic value, particularly saw significant peribronchiolar metaplasia or poorly formed granul omas, which would be more indicative of a fibrotic hypersensitivity pneumonitis. I reviewed pulmonary function tests, and FVC is above 50% and DLCO is >35% so biopsy is feasible. I think we would plan for cryobiopsy, as well as use of the [employer] genomic rod mill tender. If the [employer] genomic rod mill tender confirmed high risk UIP genes for progressive pulmonary fibrosis, then we would plan to start antifibrotic therapy. If the Env isia did not confirm high risk UIP genes, but the BAL and cryo biopsy were not f ully supportive of a fibrotic hypersensitivity pneumonitis, I would still diagno se him with IPF, but with lower confidence given the possibility of seasonal env ironmental exposures. Again, we would proceed with antifibrotic therapy for david rodríguez. However, if the additional diagnostic procedures indicated a probable fib rotic hypersensitivity pneumonitis, then we would probably treat with mycophenol ate initially. We would also recommend discontinuation of the down comforter. Co nsider environmental testing in the workplace, as well as in the home environmen t. If we felt a diagnosis of IPF was appropriate, once he was on a stable dose of a ntifibrotic for 8 weeks, we could explore additional treatment options [facility]. We offer access to several randomized controlled clinical trials for IPF with so me therapies that may prove to be more efficacious. We are being approached wit h new clinical trial options quite frequently, but current clinical trials are a s follows: [employer]: This is a trial utilizing an LPA 1 pathway inhibitor . This is a twice daily oral therapy and is a phase 2B study. It will be a 6-m [facility] randomized controlled trial, and then patients will transition onto active treatment for the next 6 months. Patients will be randomized to high-dose thera py, low-dose therapy, and placebo. The main notable side effect at this time is hypotension. Background therapy with Esbriet or Ofev is allowed if they are on a stable dose for greater than 8 weeks. QTc interval greater than 450 ms is an exclusion factor. They also have a separate trial for progressive pulmonary fi brosis. If the patient has an autoimmune disease they may be excluded, as it wi ll only allow RAILD and IPAF (interstitial pneumonia with autoimmune features ) [employer]: This is phase 3 trial evaluating the efficacy of pamrevulimab, wh ich is an anticonnective tissue growth factor antibody. Earlier studies have sh own good results with an average rate of FVC decline around 2% versus 7% in plac greer patients. It is administered as an IV infusion every 3 weeks. Unfortunatel y, background therapy with Esbriet or Ofev is contraindicated. This is a 52-wee k placebo controlled trial, that will then transition into active treatment for all patients. [employer]: This is a phase 3 trial evaluating the efficacy of PRM-15 1, which is a pentraxin 2 agonist. This is a molecule that stimulates M2 macrop hages to clean up fibrotic tissue. This is administered as an IV infusion every 4 weeks. Initially, patients will receive a loading dose the very first week w ith infusions on Sunday, Sunday, and Sunday. In phase 1 dose finding studies , some patients did show a 5 to 10% improvement in FVC. In the phase 2B trials, patients had to have evidence of progressive pulmonary fibrosis whether they we re on treatment with Esbriet or Ofev. It was well-tolerated with minimal side e ffects. PRM-151 showed an ability to slow the rate of fibrosis and treated erin ents. This is a 52-week placebo controlled trial, that will then transition int o active treatment for all patients. [employer]: This is a trial evaluating the pulmonary vasodilator T yvaso. This a therapy that is already approved for ILD patients with WHO group 3 pulmonary hypertension. There has been some basic research suggesting that it may have some antifibrotic properties. So, this will be a 52-week phase 3 trial evaluating efficacy in patients with IPF. At the very least, the hope is that it may delay the development of secondary pulmonary hypertension, but it may of leti a unique treatment effect. We will tentatively plan to discuss management pending results of the bronchosco py. Hiatal hernia: On CT imaging, he does have a small hiatal hernia. He denies any symptoms of ALEXI D. We do see that about 20% of patients with IPF have silent GERD. There has als o been increasing recognition that GERD may play a role in the progression of se veral different types of interstitial lung disease. It is suspected that microa spiration of digestive enzymes might contribute to additional lung damage. Given that he does not have any symptoms of GERD, if we make a formal diagnosis of IPF, we should pursue formal testing with a pH probe to make certain this is not a contributing factor. Additional Recommendations: I would also recommend we follow-up exercise oximetry testing and nocturnal oxim etry testing to make sure oxygen usage is at an appropriate level given his DLCO is severely decreased at 43% predicted. If nocturnal desaturations are noted, then further evaluation for obstructive sleep apnea would be recommended, since some studies have shown 80% of patients with pulmonary fibrosis may have TESSIE, an d this would increase the risk for developing pulmonary hypertension by 4.5 fold . Patients who develop pulmonary hypertension experience increased respiratory related mortality. If there is a progressive decline in the diffusing capacity, then further evaluation for pulmonary hypertension with a screening echocardiog kael would be recommended. Most patients who maintain a routine exercise regimen tend to have better long t erm outcomes. Consequently, I think there is tremendous benefit from enrolling in pulmonary rehab. We generally recommend referral to [facility], which also houses [facility], and so they do offer more individualized care for pulmonary fibrosis patients. However, any pulmonary rehab program can be beneficial. We highly encourage our patients visit and utilize information from the Pulmonar y Fibrosis Foundation website: https://www.pulmonaryfibrosis.org/. Here, you can not only find out more information on support groups and the nationwide connect ions made through pulmonary fibrosis, but you can also find helpful information on specific medications, general information on pulmonary fibrosis as well as sp ecific information on particular types of pulmonary fibrosis, oxygen basics, tra veling with oxygen, and so much more. For a direct link to the patient education material, visit: https://www.pulmonaryfibrosis.org/mgbs-shbi-ya/pff-educational -resources/madayfu-hryxbvyqh-xvlrdxoox. Additionally, the [facility] Patient Communication Center is available for any question s or concerns you have about PF and available resources during the course of you r care. Staff can be reached at [email or web address] ([phone]) or [email or web address]. Otherwise we will plan for follow-up in 4-6 weeks to discuss treatment options. PLAN: 1. Schedule bronchoscopy with BAL, cryobiopsy, and genomic rod mill tender. 2. Further management to be determined. 3. Plan for repeat pulmonary function testing every [address] Lobo. 4. I would recommend overnight oximetry testing through Dr. Lobo's office. 5. Tentative plan for follow-up in 4 to 6 weeks to discuss treatment options. If there are any additional questions please do not hesitate to contact the [facility] at . Griffin Tripp MD, [facility] Nurse Orthopaedic Director of the [facility] Division of Pulmonary & Critical Care Medicine [address] [place] [address] (This documentation was created with [employer] Dictation software, and while some e diting occurred at the time of the dictation, grammatical errors may still be pr esent) * Zaida Delgado - 12/08/2020 3:00 PM CDT Did patient read financial policy, consent to treat, and notice of privacy pract ices? Yes Does the patient give verbal consent to each policy? Yes Does the patient have any vitals to report? Yes Weight Vitals charted in O2? Yes Is the patient in pain? 0 = No pain Screening questions completed? Yes Is the patient able to acces the [employer] message with the start visit link? Yes Is patient in "virtual waiting room" No documented in this encounter Plan of Treatment Not on filedocumented as of this encounter Visit Diagnoses Diagnosis Pulmonary fibrosis (HCC) Postinflammatory pulmonary fibrosis Exposure to environmental hazard Hiatal hernia Diaphragmatic hernia without mention of obstruction or gangrene ILD (interstitial lung disease) (HCC) Postinflammatory pulmonary fibrosis documented in this encounter Discontinued Medications Start Date End Date Medication Sig Discontinue Reason 12/08/2020 vitamins, multi Take 1 Tab Patient's w/minerals tablet by mouth Choice daily. documented as of this encounter Historical Medications * This list may reflect changes made after this encounter. Start Date End Date Medication Sig Dispensed Refills vitamins, B complex tab Take 1 tablet 0 by mouth daily. added in this encounter Additional Health Concerns Assessment Noted Time A fall risk assessment has been completed for the pat ient 12/08/2020 11:32 AM CDT PHQ-2 Depression Total Score: 0 12/08/2020 11:31 AM CDT documented as of this encounter
--- OUTSIDE RECORDS SUMMARY | 2021-01-03 10:03 | XMS REPORT | Encounter Summary ---
Author Author [facility] Organization [facility] Address Unknown Phone Unavailable Care Team Providers Care Training Mgr Name Role Phone Sedrick Ortiz MD Unavailable No Pcp, Na PCP Unavailable Encounter Details Care Team Description Date Type Department 12/21/2020 Travel Social History Date Tobacco Use Types Packs/Day Years Used Quit: 2016 Former Smoker Cigarettes 1 42 Smokeless Tobacco: Never Used Comments Alcohol Use Standard Drinks/Week Not Currently 0 (1 standard drink = 0.6 o z pure alcohol) Sex Assigned at Date Recorded Male 12/01/2020 7:52 AM CDT Date Recorded COVID-19 Exposure Response 12/21/2020 9:38 AM CDT In the last month, have [...]
--- OUTSIDE RECORDS SUMMARY | 2021-01-03 10:03 | XMS REPORT | Encounter Summary ---
Author Author [facility] Organization [facility] Address Unknown Phone Unavailable Care Team Providers Care Event Marketing Specialist Name Role Phone Sedrick Ortiz MD Unavailable No Pcp, Na PCP Unavailable Encounter Details Care Team Description Date Type Department Griffin Tripp MD [address] Ortho/Med Pavilion [address] [place] [address] 12/21/2020 Hospital Laboratory: Gita Carrillo [facility] [address] [place] [address] Social History Date Tobacco Use Types Packs/Day [...] / COVID-19? documented as of this encounter Medications at Time of Discharge Start Date End Date Medication Sig Dispensed Refills aspirin 81 mg chewable Take 81 mg by 0 tablet mouth daily. DOCOSAHEXANOIC ACID/EPA Take by 0 (FISH OIL PO) mouth. gemfibrozil (LOPID) 600 Take 1,200 mg 0 mg tablet by mouth twice daily. LORATADINE (CLARITIN PO) Take by 0 mouth. niacin 750 mg TbER Take 2,500 mg 0 by mouth. vitamins, B complex tab Take 1 tablet 0 by mouth daily. documented as of this encounter Discharge Disposition Code Departure Means Destination Disposition Home Home or Self Care documented in this encounter Plan of Treatment Not on filedocumented as of this encounter Procedures Comments Procedure Name Priority Date/Time Associated Diag nosis HC CBC,AUTOMATED Routine 12/21/2020 Pulmonary fib rosis (HCC) 9:45 AM CDT Hypersensitivity pneumonitis (HCC) HC BASIC METABOLIC PANEL Routine 12/21/2020 Pulmo nary fibrosis (HCC) 9:45 AM CDT Hypersensitivity pneumonitis (HCC) documented in this encounter Results * BASIC METABOLIC PANEL (12/21/2020 9:45 AM [...] >60 >60 mL/min [facility] Comment: Ukrainian The eGFR is not validated f or use in drug dosing adjustments. Continue to use estimated creatinine clearance per dosing reference text. Please contact the Clinical Pharmacist for questions. eGFR >60 >60 mL/min [facility] [place] Comment: The eGFR is not validated for use in drug dosing adjustments. Continue to use estimated creatinine clearance per dosing reference text. Please contact the Clinical Pharmacist for questions. Specimen Blood Performing Organization Address City/State/ZIP Code P cindy Number [facility] [address] [place] [address] * CBC (12/21/2020 9:45 AM CDT) [place] [...] MAIN LAB Specimen Blood Performing Organization Address City/State/ZIP Code P cindy Number [facility] [address] [place] [address] documented in this encounter Visit Diagnoses Diagnosis Pulmonary fibrosis (HCC) Postinflammatory pulmonary fibrosis Hypersensitivity pneumonitis (HCC) Unspecified allergic alveolitis and pne umonitis documented in this encounter Additional Health Concerns Assessment Noted Time A fall risk assessment has been completed for the pat ient 12/08/2020 11:32 AM CDT PHQ-2 Depression Total Score: 0 12/08/2020 11:31 AM CDT documented as of this encounter
--- OUTSIDE RECORDS SUMMARY | 2021-01-03 10:03 | XMS REPORT | Encounter Summary ---
Author Author [facility] Organization [facility] Address Unknown Phone Unavailable Care Team Providers Care Stakeholder Manager Name Role Phone Sedrick Ortiz MD Unavailable No Pcp, Na PCP Unavailable Reason for Visit * Auth/Cert Referred By Contact Referred To Contact Status Reason Specialty Diagnoses / Procedures Diagnoses Pulmonary fibrosis (HCC) Hypersensitivity pneumonitis (HCC) Pulmonary fibrosis (HCC) [J84.10] Hypersensitivity pneumonitis (HCC) [J67.9] P rocedures TN BRNCHSC INCL FLUOR GDNCE DX W/CELL WASHG SPX TN BRNCHSC W/BRNCL ALVEOLAR LAVAGE TN BRONCHOSCOPY W/TRANSBRONCHIAL LUNG BX 1 LOBE TN BRONCHOSCOPY W/TRANSBRONCHIAL LUNG BX EACH LOBE BRONCHOSCOPY DIAGNOSTIC WITH CELL WASHING - FLEXIBLE BRONCHOSCOPY WITH BRONCHIAL ALVEOLAR LAVAGE - FLEXIBLE BRONCHOSCOPY WITH TRANSBRONCHIAL LUNG BIOPSY - FLEXIBLE - SINGLE LOBE BRONCHOSCOPY WITH TRANSBRONCHIAL LUNG BIOPSY - FLEXIBLE - EACH ADDITIONAL LOBE Encounter Details Care Team Description Date Type Department Pedro Salazar MD [address] Ortho/Med Pavilion [address] [place] [address] BRONCHOSCOPY DIAGNOSTIC WITH CELL WASHIN G - FLEXIBLE 12/24/2020 Surgery Operating Room: [facility], [address] [place] [address] Surgery Details Trauma Case? Date/Time Status Location OR Service Patient Class Case Class Case Type 12/24/20 Posted [facility] OR OR 18 Pulmonary Outpatient Electi ve - 9:15 AM Medicine Surgery Treating conditions that are not life or limb threatenin g Panel 1 Procedure LRB Anes Op Region Wound Class Com ments BRONCHOSCOPY DIAGNOSTIC N/A Defer to Bronchus NA Cryobiopsy & Envisia WITH CELL WASHING - Anesthesia FLEXIBLE BRONCHOSCOPY WITH N/A Defer to Bronchus NA Cryob iopsy & Envisia BRONCHIAL ALVEOLAR LAVAGE Anesthesia - FLEXIBLE BRONCHOSCOPY WITH N/A Defer to Bronchus NA Cryob iopsy & Envisia TRANSBRONCHIAL LUNG Anesthesia BIOPSY - FLEXIBLE - SINGLE LOBE BRONCHOSCOPY WITH N/A Defer to Bronchus NA Cryob iopsy & Envisia TRANSBRONCHIAL LUNG Anesthesia BIOPSY - FLEXIBLE - EACH ADDITIONAL LOBE Panel Surgeon Surgeon Role Service 1 Pedro Salazar MD Primary Pulmonary Medicine 1 Evelio Harding MD Fellow Pulmonary Medi cine Social History Date Tobacco Use Types Packs/Day [...] / COVID-19? documented as of this encounter Last Filed Vital Signs Reading Time Taken Comments Vital Sign 154/94 12/24/2020 8:22 AM CDT Blood Pressure 69 12/24/2020 8:22 AM CDT Pulse 36.5 C (97.7 F) 12/24/2020 8:22 AM CDT Temperature - - Respiratory Rate 100% 12/24/2020 8:22 AM CDT Oxygen Saturation - - Inhaled Oxygen Concentration 80.6 kg (177 lb 11.1 oz) 12/24/2020 8:22 AM CDT Weight 167.6 cm (5' 6") 12/24/2020 8:22 AM CDT Height 28.68 12/24/2020 8:22 AM CDT Body Mass Index documented in this encounter Medications at Time of Discharge [...] Discharge Disposition Code Departure Means Destination Disposition Wheelchair Home or Self Care documented in this encounter Progress Notes * Abi Hu RN - 12/24/2020 11:19 AM CDT Discharge instructions reviewed with patient and patient's son. Both verbalized understanding. Chest x-ray complete and read prior to discharge. Per Dr. Harding patient can be discharged at this time. All belongings returned. IV removed mj or to discharge. documented in this encounter H&P Notes * Evelio Harding MD - 12/24/2020 9:02 AM CDT History and Physical Update Note Allergies: Patient has no known allergies. Lab/Radiology/Other Diagnostic Tests: 24-hour labs: No results found for this visit on 12/24/20 (from the past 24 rashaun r(s)). Point of Care Testing: (Last 24 hours): Nutrition: No Dietitian Consult Wound: No Wound Consult I have examined the patient, and there are no significant changes in their condi tion, from the previous H&P performed on 12/08/20. Evelio Harding MD Pager * Griffin Tripp MD - 12/08/2020 3:00 [...] Lobo MD Date of Service: 12/08/2020 Subjective: Clive Davidson is a 65 y.o. male. History of [...] HISTORY: Former Smoker. 40 pack years. Quit 2016. He denies significan t alcohol or illicit [...] a fibrotic hypersensitivity pneumonitis remains in the differentia l diagnosis given the UIP pattern without traction [...] cryobiopsy, as well as use of the [employer] genomic health and safety director. If the [employer] genomic health and safety director confirmed high risk UIP genes for progressive [...] would proceed with antifibrotic therapy for david tment. However, if the additional diagnostic procedures indicated [...] could explore additional treatment options through c linical trial. We offer access to several randomized controlled clinical trials for IPF with so me therapies that may prove to be more efficacious. We are being approached wit h new clinical trial options quite frequently, but current clinical trials are a s follows: [employer]: This is a trial utilizing an LPA 1 pathway inhibitor . This is a twice daily oral therapy and is a phase 2B study. It will be a 6-m [facility] randomized controlled trial, and then patients will [...] IPAF (interstitial pneumonia with autoimmune features ) [employer]: This is phase 3 trial evaluating [...] transition into active treatment for all patients. [employer]: This is a phase 3 trial [...] int o active treatment for all patients. [employer]: This is a trial evaluating the pulmonary vasodilator T yvaso. This a therapy that is already approved for ILD patients with WHO group 3 pulmonary hypertension. There has been some basic research suggesting that it may have some antifibrotic properties. So, this will be a 52-week phase 3 tria l evaluating efficacy in patients with IPF. At [...] pulmonary rehab. We generally recommend referral to [facility], which also houses [facility], and so they do offer more individualized care for pulmonary fibrosis patients. However, an y pulmonary rehab program can be beneficial. We [...] link to the patient education material, visit: [email or web address]. Additionally, the [facility] Patient Communication Center is available for any question s or concerns you have about PF and available resources during the course of you r care. Staff can be reached at [email or web address] ([phone]) or [email or web address]. Otherwise we will plan for follow-up in 4-6 weeks to discuss treatment options. PLAN: 1. Schedule bronchoscopy with BAL, cryobiopsy, and genomic health and safety director. 2. Further management to be determined. 3. Plan for repeat pulmonary function testing every [address] Lobo. 4. I would recommend overnight oximetry testing through Dr. Lobo's office. 5. Tentative plan for follow-up in 4 to 6 weeks to discuss treatment options. If there are any additional questions please do not hesitate to contact the [facility] at . Griffin Tripp MD, [facility] Team Foreman Director of the [facility] and [facility] Division of Pulmonary & Critical Care Medicine [address] [place] [address] (This documentation was created with [employer] Dictation software, and while some e diting occurred at the time of the dictation, grammatical errors may still be pr esent) documented in this encounter Plan of Treatment Date/Time Name Type Priority Associated Diag noses 12/24/2020 9:30 AM CDT CULTURE-FUNGAL,OTHER Microbiology Routine 12/24/2020 10:21 AM CDT CULTURE-TB (AFB) Microbiology Routine documented as of this encounter Procedures Comments Procedure Name Priority Date/Time Associated Diag nosis CHEST SINGLE VIEW Routine 12/24/2020 10:42 AM CDT HC LVL IV SRG PTH, GROSS Routine 12/24/2020 & MICRO 10:30 AM CDT HC NON-SCULPTURE INSTRUCTOR/THIN PREP Routine 12/24/2020 10:30 AM CDT FLUORO MOBILE IN OR Routine 12/24/2020 10:21 AM CDT CULTURE-TB (AFB) Routine 12/24/2020 10:21 AM CDT CYTOLOGY SPECIMEN LABEL Routine 12/24/2020 9:30 AM CDT HC HSV PCR Routine 12/24/2020 9:30 AM CDT CULTURE-FUNGAL,OTHER Routine 12/24/2020 9:30 AM CDT GRAM STAIN 12/24/2020 9:30 AM CDT CULTURE-RESP,LOWER Routine 12/24/2020 W/SENSITIVITY 9:30 AM CDT HC CMV DNA QN BY PCR Routine 12/24/2020 9:30 AM CDT HC CELL COUNT Routine 12/24/2020 W/DIFF-FLUIDS 9:30 AM CDT BRONCHOSCOPY WITH 12/24/2020 Pulmonary [...] CDT PROCEDURE RECORD-SCAN 12/24/2020 12:00 AM CDT documented in this encounter Results * CHEST SINGLE VIEW (12/24/2020 10:42 AM CDT) Specimen Impressions Performed At Mild bibasilar scarring/fibrosis. Interstitial promin ence in the right midlung [facility] RESULTS may represent mild postbiopsy hemorrhag e. Finalized by Pedro New M.D. on 2020 10:47 AM. Dictated by Pedro Nwe M.D. on 12/24/2020 10:46 AM. Narrative Performed [...] SPECIMENS (12/24/2020 10:30 AM CDT) PATHOLOGY [facility] [employer] [facility] [email or web address] Department of Pathology and Laboratory Medicine [address] [place] [address] Surgical Pathology Office: [phone] SURGICAL PATHOLOGY REPORT NAME: CLIVE DAVIDSON SURG PATH #: [id number] MR #: [id number] SPECIMEN CLASS: SR BILLING #: [id number] ALT ID #: LOCATION: [facility] DATE OF [...] Organization Address City/State/ZIP Code P cindy Number [facility] [address] [place] [address] * CYTOLOGY BRONCH LAVAGE (12/24/2020 10:30 AM CDT) Cytology [facility] [email or web address] Department of Pathology and Laboratory Medicine [address] [place] [address] Surgical Pathology Office: [phone] CYTOLOGY REPORT NAME: CLIVE DAVIDSON CYTOLOGY #: [id number] MR #: [id number] ALT ID #: BILLING #: [id number] LOCATION: [facility] DATE OF PROCEDURE: 12/24/2020 AGE: [...] Specimen Bronchial Alveolar Lavage,RUL Performing Organization Address City/[facility]/ZIP Code P cindy Number MAIN LAB [address] [place] [address] * FLUORO MOBILE IN OR (12/24/2020 10:21 AM CDT) Specimen Narrative Performed At This order has been auto finalized and does not conta in a result. [facility] Performing Organization Address City/[facility]/ZIP Code P cindy Number [facility] * GRAM STAIN (12/24/2020 9:30 AM CDT) [...] Lavage - Lung RUL Performing Organization Address [facility]/ZIP Code P cindy Number [facility] [address] [place] [address] * CELL COUNT W/DIFF-FLUIDS (12/24/2020 9:30 AM CDT) Segmented 1Comment: CELLS MODERATELY % [facility] Neutrophils, DEGENERATED/INTERPRET WITH Fluid CAUTION/983 Lymphocytes,Flu 1 % [facility] id Monocyte/Histo, 98 % [facility] Fluid Fluid Source FLUID [facility] BRONCHOALVEOLAR LAVAGE Pathology NO DIAGNOSTIC ABNORMALITIES [facility] AB Interpretation, Fluid Pathologist INTERPRETED BY DANA ROSADO M.D. [facility] Signature By the PATH SIGNATURE ABOVE , I attest that I have personally formulated the final interpretation expressed in this report and that the above diagnosis is based upon my examination of the slides and/or other material indicated in this report. Specimen Fluid - Bronchoalveolar Lavage Performing Organization Address [facility]/ZIP Code P cindy Number [facility] [address] [place] [id number] * CMV QUANT PCR-FLUID (12/24/2020 9:30 AM CDT) Specimen, CMV FLUID [facility] BRONCHOALVEOLAR LAVAGE CMV by CMV DNA NOT DETECTED MAIN LAB PCR-fluid CMV This assay is an off label use [facility] Comment-Fluid of the [employer] y for detection of CMV in fluids and has not been approved by the US Food and Drug Administration. The performance characteristics were determined by the [facility]. The lower limit of detection is 50IU/mL. Specimen Fluid - Fluid Performing Organization Address [facility] Code P cindy Number MAIN LAB [address] [place] [address] * HERPES SIMPLEX PCR - NON-BLOOD (12/24/2020 9:30 AM CDT) Specimen, BRONCHOALVEOLAR LAVAGE [facility] Herpes Herpes Simplex HSV 1 and 2 NOT DETECTED HSVND-HSV 1 and 2 [facility] PCR Comment: NOT DETECTED [employer] HSV 1&2 Assay is a qualitative real-time PCR test for the direct detection and differentiation of HSV 1 and 2 DNA. This assay is FDA approved for testing cutaneous or mucocutaneous lesions from symptomatic patients. Performance on modifications of this test as well as other specimen types has been validated by the Department of Pathology and Laboratory Medicine at the [facility]. Specimen Bronchoalveolar Lavage Performing Organization Address [facility] P cindy Number [facility] [address] [place] [address] * CULTURE-RESP,LOWER W/SENSITIVITY (12/24/2020 9:30 AM CDT) [...] Lavage - Lung RUL Performing Organization Address [facility] P cindy Number [facility] [address] [place] [address] * CYTOLOGY SPECIMEN LABEL (12/24/2020 9:30 AM CDT) Specimen Other (Specify) Performing Organization Address [facility]/ZIP Code P cindy Number [facility] RESULTS * BRONCHOSCOPY (12/24/2020 8:57 AM CDT) Provation Patient Name: Clive ESPINAL OTHER Report Procedure Date: 12/24/2020 RESULTS 8:57 AM CSN: [id number] Date of : 1955 Gender: Male Attending Physician: Pedro Salazar MD Procedure: Bronchoscopy Indications: Interstitial lung disease Providers: Pedro Salazar MD (Doctor), Evelio Harding (Fellow), Nadia Sultana (Nurse), Shiraz John (Banana Grader) Referring Physician: Griffin Tripp MD Medications: Tetricaine [...] intially using forceps for the [employer] genomic health and safety director and three samples were obtained. Forceps then were extended into the RUL and two samples were obtained and sent for [employer] genomic health and safety director. Following completion of the biopsies for [employer] health and safety director, a pediatric Mikey bronchial balloon was placed [...] the RUL and RLL and sent for [employer] genomic health and safety director. - Transbronchial cryobiopsies were obtained in the RLL and sent for histopathology examination. - Bronchoalveolar lavage was performed in the RUL. Estimated Blood Loss: Estimated blood loss: none. Recommendation: - Await BAL, biopsy and cytology results. Scope In: 9:27:47 AM Scope Out: 10:13:04 AM Procedure Code(s): --- Professional --- 83567, Bronchoscopy, rigid or flexible, including fluoroscopic guidance, when performed; with transbronchial lung biopsy(s), single lobe 45522, Bronchoscopy, rigid or flexible, including fluoroscopic guidance, when performed; with bronchial alveolar lavage CPT copyright 2020 [employer]. All rights reserved. The codes documented in this report are preliminary and upon superintendent transportation review may be revised to meet current [...] ot available. Ordered by an unspecified provider. documented in this encounter Visit Diagnoses Diagnosis Pulmonary fibrosis (HCC) Postinflammatory pulmonary fibrosis Hypersensitivity pneumonitis (HCC) Unspecified allergic alveolitis and pne umonitis documented in this encounter Administered Medications Action Date Dose Rate Site Medication Order MAR Action fentaNYL citrate PF (SUBLIMAZE) injection 50 mcg 50 mcg, Intravenous, EVERY 5 MIN PRN, Starting on Sun12/24/20 at 0931, Until Sun12/24/20 at 1321, Pain Injectable, For Pain Score 7-10, For Pain Score 7-1 0 Maximum total dose of 200 mcg Hold for RR < 10, PACU (only) haloperidol lactate (HALDOL) injection 1 mg 1 mg, Intravenous, ONCE PRN, 1 dose, Starting on Sun12/24/20 at 0931, Until Sun12/24/20 at 1321, Other..., Nausea and Vomiting, Second line agent, give i f first line agent ineffective. DO NOT ADMINISTER if given intraoperatively., PACU (only) 12/24/2020 9:13 AM CDT lactated ringers infusion Given - New 1,000 mL, Intravenous, at 20 mL/hr, Bag CONTINUOUS, Starting on Sun12/24/20 at 0815, Until Sun12/24/20 at 1321, Pre-O p promethazine (PHENERGAN) injection 6.25 mg 6.25 mg, Intravenous, EVERY 10 MIN PRN, Starting on Sun12/24/20 at 0931, Until Sun12/24/20 at 1321, Other..., nausea/vomiting, First line agent. Give in freely running IV and dilute in 10mL 0.9% sodium chloride. May repeat to total dose of 25 mg from all routes ordered PRN, if no relief in 15 minutes then notify anesthesia physician. PROTECT FROM LIGHT For IV Administration: a. Admin. each dose slowly over at least 5 min. Use lowest effective dose. b. Admin. through a large-bore vein (central venous site preferably). AVOID HAND OR WRIST VEINS UNLESS NO OTHER ALTERNATIVES ARE AVAILABLE. Do NOT administer intra-arterially. c. Check patency of site before admin. Inspect site around catheter tip and extremity for swelling , blanching, bleb formation, stretched an d firm skin or coolness. d. Remain in continual contact with the patient during admin. and for 5 minutes following to observe for adverse reactions and monitor injection site. e. Ask patient to report any burning o r discomfort during infusion. If extravasation is suspected, stop infusion immediately, implement Extravasation Management Protocol, and notify physician., PACU (only) 12/24/2020 10:09 AM CDT 1 mL tranexamic acid (CYKLOKAPRON) injection Given INTRA-PROCEDURE MED, Starting on Sun12/24/20 at 1009, Until Sun12/24/20 at 1028, Intra-op documented in this encounter Active and Recently Administered Medications Times are shown in CDT. 12/23/2020 12/24/2020 Medication Order 12/22/2020 0913 (Given - New Bag - Provider: Nessa Perdomo CRNA)1032 (Anesthesia Volume Adjustment - Provider: Nessa Perdomo CRNA) lactated ringers infusion 1,000 mL, Intravenous, at 20 mL/hr, CONTINUOUS, Starting on Sun12/24/20 at 0815, Until Sun12/24/20 at 1321, Pre-O p 12/23/2020 12/24/2020 Medication Order 12/22/2020 fentaNYL citrate PF (SUBLIMAZE) injection 50 mcg 50 mcg, Intravenous, EVERY 5 MIN PRN, Starting on Sun12/24/20 at 0931, Until Sun12/24/20 at 1321, Pain Injectable, For Pain Score 7-10, For Pain Score 7-1 0 Maximum total dose of 200 mcg Hold for RR < 10, PACU (only) haloperidol lactate (HALDOL) injection 1 mg 1 mg, Intravenous, ONCE PRN, 1 dose, Starting on Sun12/24/20 at 0931, Until Sun12/24/20 at 1321, Other..., Nausea and Vomiting, Second line agent, give i f first line agent ineffective. DO NOT ADMINISTER if given intraoperatively., PACU (only) promethazine (PHENERGAN) injection 6.25 mg 6.25 mg, Intravenous, EVERY 10 MIN PRN, Starting on Sun12/24/20 at 0931, Until Sun12/24/20 at 1321, Other..., nausea/vomiting, First line agent. Give in freely running IV and dilute in 10mL 0.9% sodium chloride. May repeat to total dose of 25 mg from all routes ordered PRN, if no relief in 15 minutes then notify anesthesia physician. PROTECT FROM LIGHT For IV Administration: a. Admin. each dose slowly over at least 5 min. Use lowest effective dose. b. Admin. through a large-bore vein (central venous site preferably). AVOID HAND OR WRIST VEINS UNLESS NO OTHER ALTERNATIVES ARE AVAILABLE. Do NOT administer intra-arterially. c. Check patency of site before admin. Inspect site around catheter tip and extremity for swelling , blanching, bleb formation, stretched an d firm skin or coolness. d. Remain in continual contact with the patient during admin. and for 5 minutes following to observe for adverse reactions and monitor injection site. e. Ask patient to report any burning o r discomfort during infusion. If extravasation is suspected, stop infusion immediately, implement Extravasation Management Protocol, and notify physician., PACU (only) 1009 (Given - Provider: Carlos Sullivan) tranexamic acid (CYKLOKAPRON) injection (CANCELED) INTRA-PROCEDURE MED, Starting on Sun12/24/20 at 1009, Until Sun12/24/20 at 1028, Intra-op documented in this encounter Orders First Ordered Date Medications Ordered That Might Not Have Count Last Ordered Date Been Administered fentaNYL citrate PF (SUBLIMAZE) 1 2020 injection 50 mcg haloperidol lactate (HALDOL) injection 1 1 12/24/2020 mg lactated ringers infusion 1 12/24/2020 LACTATED RINGERS IV SOLP (Cabinet 1 12/10 Override) promethazine (PHENERGAN) injection 6.25 1 12/24/2020 mg First Ordered Date Diet Count Last Ordered Date DISCHARGE DIET REGULAR 1 12/24/2020 First Ordered Date Nursing Count Last Ordered Date DISCHARGE ACTIVITY NORMAL 1 12/24/2020 DISCHARGE CONTACT 1 12/24/2020 DISCHARGE SIGNS/SYMPTOMS 1 12/24/2020 First Ordered Date Discharge Count Last Ordered Date DISCHARGE PATIENT NOW 1 12/24/2020 First Ordered Date Vital Signs Count Last Ordered Date VITAL SIGNS 1 12/24/2020 documented in this encounter Additional Health Concerns Assessment Noted Time A fall risk assessment has been completed for the pat ient 12/24/2020 8:33 AM CDT PHQ-2 Depression Total Score: 0 12/08/2020 11:31 AM CDT documented as of this encounter
--- OUTSIDE RECORDS SUMMARY | 2021-01-03 10:03 | XMS REPORT | Encounter Summary ---
Author Author [facility] Organization [facility] Address Unknown Phone Unavailable Care Team Providers Care Transmission Rebuilder Name Role Phone Sedrick Ortiz MD Unavailable No Pcp, Na PCP Unavailable Reason for Visit * Reason Onset Date Comments Procedure 12/09/2020 Bronch w/BAL, TBB w /Cryobiopsy and Envisia testing Encounter Details Care Team Description Date Type Department Griffin Tripp MD [address] [facility] [address] [place] [address] Procedure (Bronch w/BAL, TBB w/Cryobiops y and Envisia testing) 12/09/2020 Telephone Pulmonology: [facility] [address], [address] [address] Social History Date Tobacco Use [...] Telephone Encounter - Josefina Mahajan RN - 12/29/2020 6:15 PM CDT Message sent to Dr Tripp that biopsy results were back with cultures still pen jarred. Josefina Mahajan RN * Telephone Encounter - Josefina Mahajan RN - 12/29/2020 11:35 AM CDT Patient called stating he had just coughed up a trace amount of blood. Returned call and patient stated it was just a "little bit" of blood and only occurred o nce. He will continue to monitor and call if there are any problems. Discussed we would be contacting him with the results of his biopsy soon and that someone would contact him to discuss how he was doing. Josefina Mahajan RN * Telephone Encounter - Josefina Mahajan RN - 12/29/2020 10:50 AM CDT Spoke with patient. He states each day the amount of blood he has coughed up dillon s declined and he has not coughed any blood up today. He will call if he should begin to cough up blood again. He has the after hours number on hand. Josefina carranza RN * Telephone Encounter - Josefina Mahajan RN - 12/27/2020 8:19 AM CDT Returned patient's son's call about patient still spitting up blood after bronch on 12/24. It is less than dime size in amount with each cough and mixed with s aliva and sputum. States it occurs 4-5 times a day. He states in the morning it is darker and as the day goes on becomes bright red in appearance and that the amount has decreased over the weekend. States patient does not have any other sy mptoms. Denies pain or fever. Explained to son that this is normal. That it would be concerning if it was more than a teaspoon full and if it should begin t o increase in amount. Patient's son stated he felt that in total it was more th an a teaspoon full but did state it had decreased as of this morning. They will continue to monitor and if it continues over the next days they will call back. Discussed if it should increase in amount they should seek help. Josefina mack RN * Telephone Encounter - Josefina Mahajan RN - 12/09/2020 3:35 PM CDT Spoke with patient and he would like to schedule his procedure on 12/24/20 @ 091 5 and Covid testing at [facility] @ 10:20 (patient lives in [place], [place]). Went over t esting and preprocedure instruction with patient and sent in writing to his My Maris becker. He voiced understanding. He will have his labs drawn when he has his Cov id test. Josefina Mahajan RN COVID Testing You are scheduled on December 21 at 10:20am (Testing is from 7:00am till 6:50pm) [address] [phone] Located directly across from the hospital main entrance. Follow the white signs with blue stars on them. You will see orange cones with blue stars on them. P ark your car near the tented area and then call [phone]. Remember to stay in your car. You will receive further instructions once you have called. - Bring a photo identification - Bring your cell phone Pre-procedure Instructio frederick - You have been scheduled for a Bronchoscopy on December 24, with a [facility] k in time of 7:15am and procedure time of 9:15am. This will be at the [facility] at [address] [place] [address]. - Nothing to eat or drink after midnight the day of your procedure. - The day of your procedure: - you can take your regular medications with a sip of water in the morning. - If you are taking blood thinners, oral diabetes medications, or insulin you wi ll need to confirm dosing with your provider. - you will need to check in at admitting, just inside the main [facility] entrance on the left, located at [address] [place] [address], two (2) h ours before your procedure time. There is a parking garage (P3) located across f rom the entrance. - you will need a stake driver to and from the procedure. Only one (1) person is all owed to accompany you. Results are generally available 3 - 5 business days after the procedure and we w ill contact you to discuss the results. Due to the enactment of The 21st Centur y Cures Act (Cures Act), results from your procedure are made available to you i mmediately and are not reviewed prior to their release. You will receive a phon e call from someone with the pulmonary team to discuss the results after they dillon ve been reviewed. This is generally 24 hours to 48 hours after the results have been released. After your procedure, please contact Josefina Mahajan RN with signs and symptoms of worsening condition: increased shortness of breath increased coughing new or increased productive cough with thick &/ or abnormal colored sputum bloody sputum chest tightness chest pain wheezing fever, chills, or night sweats - For URGENT issues after business hours, weekends, or holidays: Call and request for the Freezer Person to be paged. - To cancel, change, or schedule a clinic appointment: Call our Pulmonary Schedu lerkarin at Pulmonary Clinic Nurse Coordinator-Josefina Mahajan RN - Office: [phone] fa x: [phone] * Telephone Encounter - Josefina Mahajan RN - 12/09/2020 1:56 PM CDT Images from the original note were not included. Orders for Bronch w/BAL, TBB w/Cryobiopsy and Envisia testing, Covid testing, CB C, and BMP entered. Called patient to schedule procedure and lvm with call back number. Josefina Mahajan RN documented in this encounter Plan of Treatment [...]
--- OUTSIDE RECORDS SUMMARY | 2021-01-03 10:03 | XMS REPORT | Encounter Summary ---
Author Author [facility] Organization [facility] Address Unknown Phone Unavailable Care Team Providers Care Assistant Men'S Lacrosse Coach Name Role Phone Sedrick Ortiz MD Unavailable No Pcp, Na PCP Unavailable Reason for Visit * Reason Onset Date Comments Records Request 12/07/2020 [facility] Encounter Details Care Team Description Date Type Department Griffin Tripp MD [address] Orth[facility] [address] [place] [address] Records Request ([facility] ) 12/07/2020 Telephone Pulmonology: [facility] [address], [address] [address] Social History Date Tobacco Use Types Packs/Day Years Used Never Assessed Sex Assigned at Date Recorded Male 12/01/2020 7:52 AM CDT documented as of this encounter Miscellaneous Notes * Telephone Encounter - Daisy Pineda RN - 12/07/2020 9:43 AM CDT RECORDS IN G DRIVE: Noted CT was to do be completed 11/08/20- no results faxed. Requesting results of CT and [place] images via urgent Fax.- CT results in GDrive, CT in PACS. Chart notes and PFT dated 10/18/2020 in [employer]. documented in this encounter Plan of Treatment Not on filedocumented as of this encounter Visit Diagnoses Not on filedocumented in this encounter
--- OUTSIDE RECORDS SUMMARY | 2021-01-03 10:03 | XMS REPORT | Encounter Summary ---
Author Author [facility] Organization [facility] Address Unknown Phone Unavailable Care Team Providers Care Junior Recruiter Name Role Phone Sedrick Ortiz MD Unavailable No Pcp, Na PCP Unavailable Reason for Visit * Reason Comments Preop Exam Encounter Details Care Team Description Date Type Department Griffin Tripp MD [address] Orth[facility] [address] [place] [address] Encounter for screening laboratory testi ng for COVID-19 virus in asymptomatic patient 12/21/2020 Nurse Only Specialty Screening : [facility] [address] [place] [address] Social History Date Tobacco Use Types Packs/Day [...] / COVID-19? documented as of this encounter Progress Notes * Aneta Engel RN - 12/21/2020 10:20 AM CDT Patient arrived to COVID clinic for COVID-19 testing 12/21/20 0916. Patient iden tity confirmed via photo I.D. Nasopharyngeal procedure explained to the patient. Nasopharyngeal swab completed right Patient education provided given and instructed patient self isolate until conta cted w/ results and further instructions. CDC handout on COVID-19 given to aniya joya. https://www.cdc.gov/coronavirus/2019-ncov/downloads/10Things.pdf Swab collected by payton donnelly. Reason for testing: bronch 12/24/20 documented in this encounter Plan of Treatment Not on filedocumented as of this encounter Procedures Comments Procedure Name Priority Date/Time Associated Diag nosis COVID-19 (SARS-COV-2) PCR Routine 12/21/2020 [place] [facility] for screening 9:16 AM CDT laboratory testing for COVID-19 virus in asymptomatic patient documented in this encounter Results * COVID-19 (SARS-COV-2) PCR (12/21/2020 9:16 AM CDT) COVID-19 FLOCKED SWAB MAIN LAB (SARS-CoV-2) NASOPHARYNGEAL PCR Source COVID-19 NOT DETECTED DN-NOT DETECTED MAIN LAB (SARS-CoV-2) Comment: PCR This assay is [...] Performance characteristics have been verified by the [facility] Clinical Laboratories. Fact sheet for providers: https://www.fda.gov/media/5639 78/download Fact sheet for patients: https://www.fda.gov/media/6216 81/download Specimen Flocked Swab - Nasopharyngeal Performing Organization Address City/State/ZIP Code P cindy Number MAIN LAB [address] [place] [address] documented in this encounter Visit Diagnoses Diagnosis Encounter for screening laboratory test ing for COVID-19 virus in asymptomatic patient documented in this encounter Additional Health Concerns Assessment Noted Time A fall risk assessment has been completed for the pat ient 12/08/2020 11:32 AM CDT PHQ-2 Depression Total Score: 0 12/08/2020 11:31 AM CDT documented as of this encounter
--- OUTSIDE RECORDS SUMMARY | 2021-01-03 10:03 | XMS REPORT | Encounter Summary ---
Author Author [facility] Organization [facility] Address Unknown Phone Unavailable Care Team Providers Care Hotel Attendant Name Role Phone Sedrick Ortiz MD Unavailable No Pcp, Na PCP Unavailable Encounter Details Care Team Description Date Type Department Griffin Tripp MD [address] Ortho[facility] [address] [place] [address] Pulmonary fibrosis (HCC) (Primary Dx); Encounter for screening laboratory testing for COVID-19 virus in asymptomatic patient; Hypersensitivity pneumonitis (HCC) 12/09/2020 Prep for Case Pulmonology: [facility] [address], [address] [address] Social History Date Tobacco Use Types Packs/Day Years Used Quit: 2017 Former Smoker Cigarettes 1 42 Smokeless Tobacco: Never Used Comments Alcohol Use Standard Drinks/Week Not Currently 0 (1 standard drink = 0.6 o z pure alcohol) Sex Assigned at Date Recorded Male 12/01/2020 7:52 AM CDT documented as of this encounter Plan of Treatment Not on filedocumented as of this encounter Results * CBC (12/21/2020 9:45 AM CDT) White Blood 7.5 4.5 - 11.0 K/UL [facility] Cells RBC 5.16 4.4 - 5.5 M/UL [facility] Hemoglobin 16.3 13.5 - 16.5 GM/DL [facility] Hematocrit 47.5 40 - 50 % [facility] MCV 91.9 80 - 100 FL [facility] MCH 31.6 26 - 34 PG MAIN LAB MCHC 34.3 32.0 - 36.0 G/DL [facility] RDW 12.7 11 - 15 % MAIN LAB Platelet Count 283 150 - 400 K/UL MAIN LAB MPV 7.8 7 - 11 FL MAIN LAB Specimen Blood Performing Organization Address City/State/ZIP Code P cindy Number [facility] [address] [place] [address] * BASIC METABOLIC PANEL (12/21/2020 9:45 AM CDT) Sodium 137 137 - 147 MMOL/L MAIN LAB Potassium 4.3 3.5 - 5.1 MMOL/L [facility] Chloride 105 98 - 110 MMOL/L [facility] CO2 22 21 - 30 MMOL/L [facility] Anion Gap 10 3 - 12 MAIN LAB Glucose 97 70 - 100 MG/DL MAIN LAB Blood Urea 8 7 - 25 MG/DL MAIN LAB Nitrogen Creatinine 0.77 0.4 - 1.24 MG/DL [facility] Calcium 9.8 8.5 - 10.6 MG/DL [facility] eGFR Non >60 >60 mL/min [facility] Comment: [place] The eGFR is not validated f or use in drug dosing adjustments. Continue to use estimated creatinine clearance per dosing reference text. Please contact the Clinical Pharmacist for questions. eGFR >60 >60 mL/min [facility] [place] Comment: The eGFR is not validated for use in drug dosing adjustments. Continue to use estimated creatinine clearance per dosing reference text. Please contact the Clinical Pharmacist for questions. Specimen Blood Performing Organization Address City/[facility]/ZIP Code P cindy Number [facility] [address] [place] [address] * COVID-19 (SARS-COV-2) PCR (12/21/2020 9:16 AM CDT) COVID-19 FLOCKED SWAB [facility] (SARS-CoV-2) NASOPHARYNGEAL PCR Source COVID-19 NOT DETECTED DN-NOT DETECTED [facility] (SARS-CoV-2) Comment: PCR This assay is [...] Hospital Clinical Laboratories. Fact sheet for providers: https://www.fda.gov/media/8363 78/download Fact sheet for patients: https://www.fda.gov/media/1894 81/download Specimen Flocked Swab - Nasopharyngeal Performing Organization Address City/State/ZIP Code P cindy Number MAIN LAB [address] [place] [address] documented in this encounter Visit Diagnoses Diagnosis Pulmonary fibrosis (HCC) - Primary Postinflammatory pulmonary fibrosis Encounter for screening laboratory test ing for COVID-19 virus in asymptomatic patient Hypersensitivity pneumonitis (HCC) Unspecified allergic alveolitis and pne umonitis documented in this encounter Orders First Ordered Date Case Request Count Last Ordered Date CASE REQUEST GI ENDOSCOPY 1 12/09/2020 documented in this encounter Additional Health Concerns Assessment Noted Time A fall risk assessment has been completed for the pat ient 12/08/2020 11:32 AM CDT PHQ-2 Depression Total Score: 0 12/08/2020 11:31 AM CDT documented as of this encounter
--- OUTSIDE RECORDS SUMMARY | 2021-01-03 10:03 | XMS REPORT | Encounter Summary ---
Author Author [facility] Address Unknown Phone Unavailable Care Team Providers Care Bun Icer Name Role Phone Sedrick Ortiz MD Unavailable No Pcp, Na PCP Unavailable Reason for Visit * Auth/Cert Referred By Contact Referred To Contact Status Reason Specialty Diagnoses / Procedures Diagnoses Pulmonary fibrosis (HCC) Hypersensitivity pneumonitis (HCC) Pulmonary fibrosis (HCC) [J84.10] Hypersensitivity pneumonitis (HCC) [J67.9] P rocedures MI BRNCHSC INCL FLUOR GDNCE DX W/CELL WASHG SPX MI BRNCHSC W/BRNCL ALVEOLAR LAVAGE MI BRONCHOSCOPY W/TRANSBRONCHIAL LUNG BX 1 LOBE MI BRONCHOSCOPY W/TRANSBRONCHIAL LUNG BX EACH LOBE BRONCHOSCOPY DIAGNOSTIC WITH CELL WASHING - FLEXIBLE BRONCHOSCOPY WITH BRONCHIAL ALVEOLAR LAVAGE - FLEXIBLE BRONCHOSCOPY WITH TRANSBRONCHIAL LUNG BIOPSY - FLEXIBLE - SINGLE LOBE BRONCHOSCOPY WITH TRANSBRONCHIAL LUNG BIOPSY - FLEXIBLE - EACH ADDITIONAL LOBE Encounter Details Care Team Description Date Type Department Richard Ordonez MD [address] [place], [place] [id number] 12/24/2020 Anesthesia Operating Room: [facility] [address] [facility] [address] [place] [address] Anesthesia Record Responsible Anesthesiologist Anesthesia Start Time Anesthesi a Stop Time Procedure Name Richard Ordonez MD 12/24/20 0911 12/24/20 1033 BRONCHOSCOPY DIAGNOSTIC WITH CELL WASHING - FLEXIBLE (N/A Bronchus) Date Time Event Comment [id number] AN Equip Check 0911 Anes Start 0913 Out of Pre Procedure 0913 In Room 0914 An Start Data 0920 An Induction The patient was ree valuated immediately before moderate or deep sedation use and before anesthesia induction. 0922 An Intubation 09 Anesthesia Ready 09 Proc Start 09 an carlos enrique now 0939 Quick Note Bronchial jose i nadvertently removed during pt movement. 1001 Quick Note Bronchial jose r eplaced via VL w/ Glidescope 3 blade. 1005 Quick Note Endobronchial cuff down PSR. No bleeding 1006 Quick Note 1007 Quick Note Endobronchial cuff up 5 ml PSR. One additional cc added 1007 Quick Note EB cuff up 5 ml PSR 1009 Quick Note EB cuff down and im mediately up PSR, TXR per surgeon 1011 Quick Note EB cuff down PSR 1020 An Extubation 1028 an stop data 1032 Handoff to RN I completed my SBAR handoff to the receiving nurse. 1033 An Stop Meds Name Total fentaNYL PF (SUBLIMAZE) injection 100 mcg lidocaine (2%) 200 mg/10mL Injection 80 mg syringe propofol (DIPRIVAN) 200 mg/ 20 mL 200 mg injection (VIAL) rocuronium (ZEMURON) injection 50 mg ondansetron (ZOFRAN) injection 4 mg dexamethasone (DECADRON) 4 mg/mL 4 mg injection propofol (DIPRIVAN) infusion 419.12 mg phenylephrine (MAILE-SYNEPHRINE) 0.1 mg/mL 200 mcg injection syr sugammadex (BRIDION) 100 mg/mL iv soln 300 mg artificial tears (dextran 2 drop 70/hypromellose) ophthalmic drops dexmedeTOMIDine (PRECEDEX) 20mcg/5mL inj 4 mcg lactated ringers infusion 650 mL * Name O2 N2O Inspired N2O * No blood administrations on file. Removal Type Details Placement 12/24/20 1020 by Nessa Perdomo CRNA ETT 12/24/20; 921; Ventilated by mask (1); 12/24/20921 by Leanne Direct laryngoscopy, Stylet; Nessa Stephenson CRNA Single-Lumen, Cuffed; ETT Size: 8.5mm; Mac; Blade Size: 3; Cricoid Pressure: No; Oral; 1-Full view of the glottis; 1 insertion attempt; Auscultation, ETCO2 Detector; Vol of Air in Cuff: 8 mL; Taped at Gums: 23 centimeters; bronchia l jose placed R mainstem PSR w/ same D L as ETT placement; 12/24/20; 1020 12/24/20 1119 by Abi Hu RN Peripheral 12/24/20; 1030 (present upon arrival to 12/24/20 1030 by LUIS Hu PACU); L; Hand; 20 G; Therapy completed ; HERSON Alex 12/24/20; 1119 documented in this encounter Social History Date Tobacco Use Types Packs/Day [...] / COVID-19? documented as of this encounter OR Notes * Anesthesia Postprocedure Evaluation - Jane Sam MD - 12/24/2020 11:01 AM CDT Post-Anesthesia Evaluation Name: Ravi Landers : 1955 Age: 65 y.o. Sex: m dustin Procedure Information Anesthesia Start Date/Time: 12/24/20 0911 Procedures: BRONCHOSCOPY DIAGNOSTIC WITH CELL WASHING - FLEXIBLE (N/A Bronchus) - Cryobi opsy & Envisia BRONCHOSCOPY WITH BRONCHIAL ALVEOLAR LAVAGE - FLEXIBLE (N/A Bronchus) - Cryo biopsy & Envisia BRONCHOSCOPY WITH TRANSBRONCHIAL LUNG BIOPSY - FLEXIBLE - SINGLE LOBE (N/A B ronchus) - Cryobiopsy & Envisia BRONCHOSCOPY WITH TRANSBRONCHIAL LUNG BIOPSY - FLEXIBLE - EACH ADDITIONAL LO BE (N/A Bronchus) - Cryobiopsy & Envisia Location: MAIN OR 18 / Main OR/Periop Surgeons: Pedro Nicholas MD Post-Anesthesia Vitals BP: 90/60 (12/24 1045) Temp: (P) 37.1 C (98.7 F) (12/24 1100) Pulse: 72 (12/24 1100) Respirations: 25 PER MINUTE (12/24 1100) SpO2: 92 % (12/24 1100) SpO2 Pulse: 75 (12/24 1099) Vitals Value Taken Time BP 90/60 12/24/20 1045 Temp 36.6 C (97.8 F) 12/24/20 1030 Pulse 72 12/24/20 1100 Respirations 25 PER MINUTE 12/24/20 1100 SpO2 92 % 12/24/20 1100 ABP ART BP Post Anesthesia Evaluation Note Evaluation location: Pre/Post Patient participation: recovered; patient participated in evaluation Level of consciousness: alert Pain management: adequate Hydration: normovolemia Temperature: 36.0C - 38.4C Airway patency: adequate Perioperative Events Post-op nausea and vomiting: no PONV Postoperative Status Cardiovascular status: hemodynamically stable Respiratory status: spontaneous ventilation Follow-up needed: none Perioperative Events Perioperative Event: No Emergency Case Activation: No * Anesthesia Preprocedure Evaluation - Richard Ordonez MD - 12/24/2020 8:55 AM CDT Anesthesia Pre-Procedure Evaluation Name: Ravi Landers : 1955 Age: 65 y.o. Sex: m dustin Procedure Info: Procedure Information Date/Time: 12/24/20914 Procedures: BRONCHOSCOPY DIAGNOSTIC WITH CELL WASHING - FLEXIBLE (N/A Bronchus) - Cryobi opsy & Envisia BRONCHOSCOPY WITH BRONCHIAL ALVEOLAR LAVAGE - FLEXIBLE (N/A Bronchus) - Cryo biopsy & Envisia BRONCHOSCOPY WITH TRANSBRONCHIAL LUNG BIOPSY - FLEXIBLE - SINGLE LOBE (N/A B ronchus) - Cryobiopsy & Envisia BRONCHOSCOPY WITH TRANSBRONCHIAL LUNG BIOPSY - FLEXIBLE - EACH ADDITIONAL LO BE (N/A Bronchus) - Cryobiopsy & Envisia Location: MAIN OR 18 / Main OR/Periop Surgeons: Pedro Nicholas MD Physical Assessment Vital Signs (last filed in past 24 hours): BP: 154/94 (12/24 821) Temp: 36.5 C (97.7 F) (12/24 821) Pulse: 69 (12/24 821) Respirations: 25 PER MINUTE (12/24 821) SpO2: 100 % (12/24 821) Height: 167.6 cm (66") (12/24 821) Weight: 80.6 kg (177 lb 11.1 oz) (12/24 821) Patient History No Known Allergies Current Medications Medication Directions aspirin 81 mg chewable tablet Take 81 mg by mouth daily. DOCOSAHEXANOIC ACID/EPA (FISH OIL PO) Take by mouth. gemfibrozil (LOPID) 600 mg tablet Take 1,200 mg by mouth twice daily. LORATADINE (CLARITIN PO) Take by mouth. niacin 750 mg TbER Take 2,500 mg by mouth. vitamins, B complex tab Take 1 tablet by mouth daily. Review of Systems/Medical History Patient summary reviewed Pertinent labs reviewed PONV Screening: Non-smoker and Postoperative opioids No history of anesthetic complications (no previous anesthetics) No family history of anesthetic complications Pulmonary Not a current smoker (former smoker) Pulmonary fibrosis Cardiovascular Exercise tolerance: <4 METS Beta Jose therapy: No Beta blockers within 24 hours: n/a No hypertension, No palpitations No angina Hyperlipidemia GI/Hepatic/Renal Hiatal hernia No GERD, No hx of liver disease No renal disease No electrolyte problems Endocrine/Other No diabetes (pre-diabetic) Not obese Physical Exam Airway Findings Mallampati: II TM distance: >3 FB Neck ROM: full Mouth opening: good Airway patency: adequate Cardiovascular Findings: Rhythm: regular Rate: normal Pulmonary Findings: Breath sounds clear to auscultation. Abdominal Findings: Not obese Neurological Findings: Alert and oriented x 3 Constitutional findings: No acute distress Diagnostic Tests Hematology: Lab Results Component Value Date HGB 16.3 12/21/2020 HCT 47.5 12/21/2020 PLTCT 283 12/21/2020 WBC 7.5 12/21/2020 MCV 91.9 12/21/2020 MCH 31.6 12/21/2020 MCHC 34.3 12/21/2020 MPV 7.8 12/21/2020 RDW 12.7 12/21/2020 General Chemistry: Lab Results Component Value Date NA 137 12/21/2020 K 4.3 12/21/2020 CL 105 12/21/2020 CO2 22 12/21/2020 GAP 10 12/21/2020 BUN 8 12/21/2020 CR 0.77 12/21/2020 GLU 97 12/21/2020 CA 9.8 12/21/2020 Coagulation: No results found for: PT, PTT, INR Anesthesia Plan ASA score: 3 Plan: general Induction method: intravenous NPO status: acceptable Informed Consent Anesthetic plan and risks discussed with patient. Plan discussed with: surgeon/proceduralist and 3D SPECIALIST. documented in this encounter Plan of Treatment Not on filedocumented as of this encounter Visit Diagnoses Not on filedocumented in this encounter Administered Medications Action Date Dose Rate Site Medication Order MAR Action 12/24/2020 9:23 AM CDT 2 drops artificial tears single dose ophthalmic Given solution Both Eyes, INTRA-PROCEDURE MED, Startin g on Sun12/24/20 at 0923, Until Sun12/24/20 at 1035, Anesthesia Intra-op 12/24/2020 9:32 AM CDT 4 mg dexamethasone (DECADRON) injection Given Intravenous, INTRA-PROCEDURE MED, Starting on Sun12/24/20 at 0932, Until Sun12/24/20 at 1035, Anesthesia Intra-op 12/24/2020 10:12 AM CDT 4 mcg dexmedeTOMIDine (PRECEDEX) 20 mcg/5 mL Given (4 mcg/mL) injection Intravenous, INTRA-PROCEDURE MED, Starting on Sun12/24/20 at 1012, Until Sun12/24/20 at 1035, Anesthesia Intra-op 12/24/2020 9:20 AM CDT 100 mcg fentaNYL citrate PF (SUBLIMAZE) Given injection Intravenous, INTRA-PROCEDURE MED, Starting on Sun12/24/20 at 0920, Until Sun12/24/20 at 1035, Anesthesia Intra-op 12/24/2020 9:13 AM CDT lactated ringers infusion Given - New 1,000 mL, Intravenous, at 20 mL/hr, Bag CONTINUOUS, Starting on Sun12/24/20 at 0815, Until Sun12/24/20 at 1321, Pre-O p 12/24/2020 9:20 AM CDT 80 mg lidocaine (PF) injection Given Intravenous, INTRA-PROCEDURE MED, Starting on Sun12/24/20 at 0920, Until Sun12/24/20 at 1035, Anesthesia Intra-op 12/24/2020 10:18 AM CDT 4 mg ondansetron (ZOFRAN) injection Given Intravenous, INTRA-PROCEDURE MED, Starting on Sun12/24/20 at 1018, Until Sun12/24/20 at 1036, Anesthesia Intra-op 12/24/2020 9:46 AM CDT 100 mcg phenylephrine (MAILE-SYNEPHRINE) injection Given syringe Intravenous, INTRA-PROCEDURE MED, Starting on Sun12/24/20 at 0932, Until Sun12/24/20 at 1035, Anesthesia Intra-op 100 mcg Given 12/24/2020 9:32 AM CDT 12/24/2020 9:27 AM CDT 100 mcg/kg/min 48.36 mL/hr propofol (DIPRIVAN) infusion Dose/Rate 100 mL, Intravenous, INTRA-PROCEDURE Change MED(CONT), Starting on Sun12/24/20 at 0923, Until Sun12/24/20 at 1035, Anesthesia Intra-op 150 mcg/kg/min 72.54 mL/hr Given - New Bag 12/24/2020 9:23 AM CDT 12/24/2020 9:23 AM CDT 40 mg propofol (DIPRIVAN) injection Given Intravenous, INTRA-PROCEDURE MED, Starting on Sun12/24/20 at 0920, Until Sun12/24/20 at 1035, Anesthesia Intra-op 160 mg Given 12/24/2020 9:20 AM CDT 12/24/2020 10:01 AM CDT 10 mg rocuronium injection Given Intravenous, INTRA-PROCEDURE MED, Starting on Sun12/24/20 at 0920, Until Sun12/24/20 at 1035, Anesthesia Intra-op 10 mg Given 12/24/2020 9:46 AM CDT 30 mg Given 12/24/2020 9:20 AM CDT 12/24/2020 10:15 AM CDT 300 mg sugammadex (BRIDION) injection Given Intravenous, INTRA-PROCEDURE MED, Starting on Sun12/24/20 at 1015, Until Sun12/24/20 at 1035, Anesthesia Intra-op documented in this encounter Additional Health Concerns Assessment Noted Time A fall risk assessment has been completed for the pat ient 12/24/2020 8:33 AM CDT PHQ-2 Depression Total Score: 0 12/08/2020 11:31 AM CDT documented as of this encounter
--- OUTSIDE RECORDS SUMMARY | 2021-01-03 10:03 | XMS REPORT | Encounter Summary ---
Author Author [facility] Organization [facility] Address Unknown Phone Unavailable Care Team Providers Care Collection Supervisor Name Role Phone Sedrick Ortiz MD Unavailable Unknown, Unknown Md PCP Unavailable Encounter Details Care Team Description Date Type Department 11/08/2020 Hospital Imaging: Main Camp[facility], Encounter Main [facility] [address] [place] [address] Social History Date Tobacco Use Types Packs/Day Years Used Never Assessed Sex Assigned at Date Recorded Male 12/01/2020 7:52 AM CDT documented as of this encounter Medications at [...] TbER Take 2,500 mg 0 by mouth. 12/08/2020 vitamins, multi Take 1 Tab by 0 w/minerals tablet mouth daily. documented as of this encounter Discharge Disposition Code Departure Means Destination Disposition Home Home or Self Care documented in this encounter Plan of Treatment Not on filedocumented as of this encounter Procedures Comments Procedure Name Priority Date/Time Associated Diag nosis CT CHEST EXTERNAL IMAGING Routine 11/08/2020 Diag nosis unknown 12:00 AM CDT documented in this encounter Results * CT CHEST EXTERNAL IMAGING (11/08/2020 12:00 AM CDT) Specimen Narrative Performed At This order has been auto finalized and does not contain a result. documented in this encounter Visit Diagnoses Diagnosis Diagnosis unknown Other unknown and unspecified cause of morbidity or mortality documented in this encounter
--- OUTSIDE RECORDS SUMMARY | 2021-01-03 10:03 | XMS REPORT | Encounter Summary ---
Author Author [facility] Organization [facility] Address Unknown Phone Unavailable Care Team Providers Care Child Care Lead Teacher Name Role Phone Sedrick Ortiz MD Unavailable No Pcp, Na PCP Unavailable Reason for Visit * Auth/Cert Referred By Contact Referred To Contact Status Reason Specialty Diagnoses / Procedures Diagnoses Pulmonary fibrosis (HCC) Hypersensitivity pneumonitis (HCC) Pulmonary fibrosis (HCC) [J84.10] Hypersensitivity pneumonitis (HCC) [J67.9] P rocedures OK BRNCHSC INCL FLUOR GDNCE DX W/CELL WASHG SPX OK BRNCHSC W/BRNCL ALVEOLAR LAVAGE OK BRONCHOSCOPY W/TRANSBRONCHIAL LUNG BX 1 LOBE OK BRONCHOSCOPY W/TRANSBRONCHIAL LUNG BX EACH LOBE BRONCHOSCOPY DIAGNOSTIC WITH CELL WASHING - FLEXIBLE BRONCHOSCOPY WITH BRONCHIAL ALVEOLAR LAVAGE - FLEXIBLE BRONCHOSCOPY WITH TRANSBRONCHIAL LUNG BIOPSY - FLEXIBLE - SINGLE LOBE BRONCHOSCOPY WITH TRANSBRONCHIAL LUNG BIOPSY - FLEXIBLE - EACH ADDITIONAL LOBE Encounter Details Care Team Description Date Type Department Pedro Salazar MD [address] Ortho[facility] [address] [place] [address] Pulmonary fibrosis (HCC) 12/24/2020 Hospital Operating Room: [facility], [address] [place] [address] Social History Date Tobacco Use [...] to treat them and their agreement to [facility] policy and NPP via this telehealth [...] on multiple occasions. He has not seen marquiseviou s mold growth, and he has not [...] well as use of the [employer]visia genomic steam service inspector. If the [employer]visia genomic steam service inspector confirmed high risk UIP genes for progressive [...] current clinical trials are a s follows: [employer]: This is a trial utilizing an LPA 1 pathway inhibitor . This is a twice daily oral therapy and is a phase 2B study. It will be a 6-m [facility] randomized controlled trial, and then patients [...] IPAF (interstitial pneumonia with autoimmune features ) [employer]: This is phase 3 trial evaluating [...] into active treatment for all patients. [employer]: This is a phase 3 trial [...] int o active treatment for all patients. [employer]: This is a trial evaluating the [...] pulmonary rehab. We generally recommend referral to [facility], which also houses [place], and so they [...] link to the patient education material, visit: [email or web address]. Additionally, the [facility] Patient Communication Center is available for any question s or concerns you have about PF and available resources during the course of you r care. Staff can be reached at [employer] ([phone]) or [email or web address]. Otherwise we will plan for follow-up in 4-6 weeks to discuss treatment options. PLAN: 1. Schedule bronchoscopy with BAL, cryobiopsy, and genomic steam service inspector. 2. Further management to be determined. 3. Plan for repeat pulmonary function testing every [address] Lobo. 4. I would recommend overnight oximetry testing through Dr. Lobo's office. 5. Tentative plan for follow-up in 4 to 6 weeks to discuss treatment options. If there are any additional questions please do not hesitate to contact the [facility] at . Griffin Tripp MD, FCCP Hand Printed Circuit Board Assembler Director of the [facility] and [facility] Division of Pulmonary & Critical Care Medicine [address] [place] [address] [address] [place] [address] (This documentation was created with Stack[employer] software, and while some e diting occurred [...] 12/24/2020 & MICRO 10:30 AM CDT HC NON-FIGHT MANAGER/THIN PREP Routine 12/24/2020 10:30 AM CDT FLUORO [...] SPECIMENS (12/24/2020 10:30 AM CDT) PATHOLOGY [facility] [email or web address] Department of Pathology and Laboratory Medicine [address] [place] [address] Surgical Pathology Office: [phone] SURGICAL PATHOLOGY REPORT NAME: CLIVE DAVIDSON SURG PATH #: [id number] MR #: [id number] SPECIMEN CLASS: SR BILLING #: [id number] ALT ID #: LOCATION: [facility] DATE OF [...] material indicated in this report. +++ +++ /12/24/2020 ############################## ############################## ############ Material Received: A: RLL [...] Organization Address City/State/ZIP Code P cindy Number [facility] [address] [place] [address] * CYTOLOGY BRONCH LAVAGE (12/24/2020 10:30 AM CDT) Cytology [facility] [email or web address] Department of Pathology and Laboratory Medicine [address] [place] [address] Surgical Pathology Office: [phone] CYTOLOGY REPORT NAME: CLIVE DAVIDSON CYTOLOGY #: [id number] MR #: [id number] ALT ID #: BILLING #: [id number] LOCATION: [facility] DATE OF PROCEDURE: 12/24/2020 AGE: [...] P cindy Number [facility] [address] [place] [address] * FLUORO MOBILE IN OR (12/24/2020 10:21 AM CDT) Specimen Narrative Performed At This order has been auto finalized and does not conta in a result. [facility] Performing Organization Address City/State/ZIP Code P cindy Number [facility] * GRAM STAIN (12/24/2020 9:30 AM [...] Lavage - Lung RUL Performing Organization Address City/[facility]/ZIP Code P cindy Number [facility] [address] [place] [address] * CELL COUNT W/DIFF-FLUIDS (12/24/2020 9:30 AM CDT) Segmented 1Comment: CELLS MODERATELY % MAIN LAB Neutrophils, DEGENERATED/INTERPRET WITH Fluid CAUTION/983 Lymphocytes,Flu 1 % [facility] id Monocyte/Histo, 98 % [facility] Fluid Fluid Source FLUID [facility] BRONCHOALVEOLAR LAVAGE Pathology NO DIAGNOSTIC ABNORMALITIES [facility] Interpretation, Fluid Pathologist INTERPRETED BY DANA ROSADO M.D. [facility] N LAB Signature By the PATH SIGNATURE ABOVE , I attest that I have personally formulated the final interpretation expressed in this report and that the above diagnosis is based upon my examination of the slides and/or other material indicated in this report. Specimen Fluid - Bronchoalveolar Lavage Performing Organization Address [facility]/ZIP Code P cindy Number [facility] [address] [place] [address] * CMV QUANT PCR-FLUID (12/24/2020 9:30 AM CDT) Specimen, CMV FLUID [facility] BRONCHOALVEOLAR LAVAGE CMV by CMV DNA NOT DETECTED [facility] PCR-fluid CMV This assay is an off label use [facility] Comment-Fluid of the [employer] RealTime Assa y for detection of CMV in fluids and has not been approved by the US Food and Drug Administration. The performance characteristics were determined by the [facility]. The lower limit of detection is 50IU/mL. Specimen Fluid - Fluid Performing Organization Address City/[facility] Code P cindy Number [facility] [address] [place] [phone] * HERPES SIMPLEX PCR - NON-BLOOD (12/24/2020 9:30 AM CDT) Specimen, BRONCHOALVEOLAR LAVAGE [facility] Herpes Herpes Simplex HSV 1 and 2 NOT DETECTED HSVND-HSV 1 and 2 [facility] PCR Comment: NOT DETECTED [employer] HSV 1&2 Assay is a qualitative real-time PCR test for the direct detection and differentiation of HSV 1 and 2 DNA. This assay is FDA approved for testing cutaneous or mucocutaneous lesions from symptomatic patients. Performance on modifications of this test as well as other specimen types has been validated by the Department of Pathology and Laboratory Medicine at the [facility]. Specimen Bronchoalveolar Lavage Performing Organization Address City/State/ZIP Code P cindy Number [facility] [address] [place] [address] * CULTURE-RESP,LOWER W/SENSITIVITY (12/24/2020 9:30 AM CDT) [...] Lavage - Lung RUL Performing Organization Address City/[facility]/ZIP Code P cindy Number [facility] [address] [place] [phone] * CYTOLOGY SPECIMEN LABEL (12/24/2020 9:30 AM CDT) Specimen Other (Specify) Performing Organization Address City/[facility]/ZIP Code P cindy Number [facility] RESULTS * BRONCHOSCOPY (12/24/2020 8:57 AM CDT) Provation Patient Name: Clive ESPINAL OTHER Report Procedure Date: 12/24/2020 RESULTS 8:57 AM CSN: [id number] Date of : 1955 Gender: Male Attending Physician: Pedro Salazar MD Procedure: Bronchoscopy Indications: Interstitial lung disease Providers: Pedro Salazar MD (Doctor), Evelio Harding (Fellow), Nadia Sultana (Nurse), Shiraz John (Livestock Counter) Referring Physician: Griffin Tripp MD Medications: Tetricaine [...] intially using forceps for the [employer] genomic steam service inspector and three samples were obtained. Forceps then were extended into the RUL and two samples were obtained and sent for [employer] genomic steam service inspector. Following completion of the biopsies for [employer] steam service inspector, a pediatric Mikey bronchial balloon was placed [...] and RLL and sent for [employer] genomic steam service inspector. - Transbronchial cryobiopsies were obtained in the RLL and sent for histopathology examination. - Bronchoalveolar lavage was performed in the RUL. Estimated Blood Loss: Estimated blood loss: none. Recommendation: - Await BAL, biopsy and cytology results. Scope In: 9:27:47 AM Scope Out: 10:13:04 AM Procedure Code(s): --- Professional --- 63821, Bronchoscopy, rigid or flexible, including fluoroscopic guidance, when performed; with transbronchial lung biopsy(s), single lobe 10691, Bronchoscopy, rigid or flexible, including fluoroscopic guidance, when performed; with bronchial alveolar lavage CPT copyright 2020 [employer]. All rights reserved. The codes documented in this report are preliminary and upon production control coordinating clerk review may be revised to meet current [...] documented in this encounter Visit Diagnoses Diagnosis ILD (interstitial lung disease) (HCC) - Primary Postinflammatory pulmonary fibrosis documented in this encounter Administered Medications Action [...] Management Protocol, and notify physician., PACU (only) documented in this encounter Active and Recently [...] promethazine (PHENERGAN) injection 6.25 1 12/24/2020 mg tranexamic acid (CYKLOKAPRON) injection 1 12/24/2020 First Ordered Date Diet Count Last Ordered [...]
--- NOTE | 2021-01-03 10:28 | ED Respiratory ---
General Chief Complaint: General Problems/Pain Stated Complaint: POST OP SPITTING UP BLOOD Nursing Triage Note: AMB TO ED WITH FEMALE PATIENT REPORTS HAD BRONCHOSCOPY ON DEC 24 AT THAT TIME A BIOSPY WAS TAKEN. WAS TOLD YOU MAY SPIT UP BLOOD. TODAY CONCERN BECAUSE SPIT UP BLOOD THAT WAS BRIGHT RED AND MORE THAT A TEASPOON Source: patient, spouse Exam Limitations: no limitations History of Present Illness Date Seen by Provider: Jan 03, 2021 Time Seen by Provider: 10:10 Initial Comments Patient presents ER by private conveyance with his spouse and chief complaint of hemoptysis of bright red blood liquid not mixed with sputum a little more than a teaspoon. 10 days ago he had bronchoscopy at [facility] by pulmonology. He has been having a little bit of progressively improving hemoptysis streaks in the sputum until today. He is not having any shortness of breath cough fevers chills nausea vomiting chest pain or exertional dyspnea. He is not on a blood thinner. Allergies and Home Medications Allergies Coded Allergies: No Known Drug Allergies (Unverified , 08/25/20) Patient Home Medication List Home Medication List Reviewed: Yes Review of Systems Review of Systems Constitutional: No chills, No fever, No malaise EENTM: No ear discharge, No ear pain Respiratory: cough, hemoptysis; No short of breath, No wheezing Cardiovascular: No chest pain, No palpitations Gastrointestinal: No abdominal pain, No nausea, No vomiting Genitourinary: No discharge, No dysuria Musculoskeletal: No back pain, No joint pain Skin: No pruritus, No rash Psychiatric/Neurological: Denies Headache, Denies Numbness All Other Systems Reviewed Negative Unless Noted: Yes Past Uzkbevp-Qipltj-Xpytko Hx Patient Social History Tobacco Use?: No Smoking Status: Former Smoker Substance use?: No Pt feels they are or have been: No Immunizations Up To Date First/Initial COVID19 Vaccinat: MAY Second COVID19 Vaccination Matt: JUNE COVID19 Vaccine Hospital Unit Clerk: JUNI Physical Exam Vital Signs - First Documented 01/03/21 09:59 Temp 36.0 Pulse 75 Resp 18 B/P (MAP) 174/91 (118) Pulse Ox 96 O2 Delivery Room Air Capillary Refill : Less Than 3 Seconds Height: '" Weight: lbs. oz. kg; 28.00 BMI Method: General Appearance: WD/WN, no apparent distress Eyes: Bilateral Eye Normal Inspection, Bilateral Eye PERRL, Bilateral Eye EOMI HEENT: PERRL/EOMI, normal ENT inspection, pharynx normal Neck: full range of motion, supple, normal inspection Respiratory: lungs clear, normal breath sounds, no respiratory distress, no accessory muscle use Cardiovascular: normal peripheral pulses, regular rate, rhythm Extremities: no pedal edema, normal capillary refill Neurologic/Psychiatric: alert, normal mood/affect, oriented x 3 Progress/Results/Core Measures Suspected Sepsis SIRS Temperature: Pulse: 75 Respiratory Rate: 18 Laboratory Tests 01/03/21 10:46: White Blood Count 10.1 Blood Pressure 174 /91 Mean: 118 Laboratory Tests 01/03/21 10:46: Creatinine 0.71, INR Comment 0.9, Platelet Count 286, Total Bilirubin 0.5 Results/Orders Lab Results Laboratory Tests Test 01/03/21 10:46 Range/Units White Blood Count 10.1 4.3-11.0 10^3/uL Red Blood Count 5.07 4.30-5.52 10^6/uL Hemoglobin 16.1 13.3-17.7 g/dL Hematocrit 45 40-54 % Mean Corpuscular Volume 89 80-99 fL Mean Corpuscular Hemoglobin 32 25-34 pg Mean Corpuscular Hemoglobin Concent 36 32-36 g/dL Red Cell Distribution Width 11.9 10.0-14.5 % Platelet Count 286 130-400 10^3/uL Mean Platelet Volume 9.0 9.0-12.2 fL Immature Granulocyte % (Auto) 0 % Neutrophils (%) (Auto) 79 H 42-75 % Lymphocytes (%) (Auto) 14 12-44 % Monocytes (%) (Auto) 6 0-12 % Eosinophils (%) (Auto) 0 0-10 % Basophils (%) (Auto) 1 0-10 % Neutrophils # (Auto) 8.0 H 1.8-7.8 10^3/uL Lymphocytes # (Auto) 1.4 1.0-4.0 10^3/uL Monocytes # (Auto) 0.6 0.0-1.0 10^3/uL Eosinophils # (Auto) 0.0 0.0-0.3 10^3/uL Basophils # (Auto) 0.1 0.0-0.1 10^3/uL Immature Granulocyte # (Auto) 0.0 0.0-0.1 10^3/uL Prothrombin Time 12.8 12.2-14.7 SEC INR Comment 0.9 0.8-1.4 Activated Partial Thromboplast Time 26 24-35 SEC Sodium Level 139 135-145 MMOL/L Potassium Level 4.0 3.6-5.0 MMOL/L Chloride Level 108 H 98-107 MMOL/L Carbon Dioxide Level 19 L 21-32 MMOL/L Anion Gap 12 5-14 MMOL/L Blood Urea Nitrogen 8 7-18 MG/DL Creatinine 0.71 0.60-1.30 MG/DL Estimat Glomerular Filtration Rate 112 BUN/Creatinine Ratio 11 Glucose Level 101 70-105 MG/DL Calcium Level 9.7 8.5-10.1 MG/DL Corrected Calcium 9.6 8.5-10.1 MG/DL Total Bilirubin 0.5 0.1-1.0 MG/DL Aspartate Amino Transf (AST/SGOT) 33 5-34 U/L Alanine Aminotransferase (ALT/SGPT) 25 0-55 U/L Alkaline Phosphatase 68 40-136 U/L Total Protein 7.4 6.4-8.2 GM/DL Albumin 4.1 3.2-4.5 GM/DL My Orders Orders - GISSELFLEX Cbc With Automated Diff (01/03/21 10:19) Chest 1 View, Ap/Pa Only (01/03/21 10:19) Ed Iv/Invasive Line Start (01/03/21 10:35) Ns Iv 1000 Ml (Sodium Chloride 0.9%) (01/03/21 10:45) Ct Angio Chest W (01/03/21 10:35) Comprehensive Metabolic Panel (01/03/21 10:35) Protime With Inr (01/03/21 10:35) Partial Thromboplastin Time (01/03/21 10:35) Iohexol Injection (Omnipaque 350 Mg/Ml 1 (01/03/21 11:15) Received Contrast (Hold Metformin- Contr (01/03/21 11:15) Ns (Ivpb) (Sodium Chloride 0.9% Ivpb Bag (01/03/21 11:15) Medications Given in ED Current Medications Medications Dose Ordered Sig/Radha Route Start Time Stop Time Status Last Admin Dose Admin Iohexol 75 ml ONCE ONCE IV 01/03/21 11:15 01/03/21 11:16 DC 01/03/21 12:46 71 ML Sodium Chloride 100 ml ONCE ONCE IV 01/03/21 11:15 01/03/21 11:16 DC 01/03/21 12:46 80 ML Vital Signs/I&O 01/03/21 01/03/21 09:59 13:44 Temp 36.0 Pulse 75 79 Resp 18 18 B/P (MAP) 174/91 (118) 145/93 Pulse Ox 96 95 O2 Delivery Room Air Room Air Capillary Refill : Less Than 3 Seconds Blood Pressure Mean: 118 Progress Note #1: Time: : Progress Note CBC and a chest x-ray. Put a phone call into pulmonology team at [facility] and are waiting to hear them back Progress Note #2: Time: :34 Progress Note Discussed the case with Dr. Nicholas who is familiar with the patient as he performed the bronchoscopy. He states that it was about a 1 cm biopsy which is larger than her typical forceps and biopsied. It was out in the parenchyma and likely he would not be able to do anything by bronchoscopy if there was significant bleeding. He would recommend a CT angiogram and IR embolization if there is active extravasation. Diagnostic Imaging Diagonstic Imaging: Xray Plain Films/CT/US/NM/MRI: chest Comments No acute abnormality is seen of the chest, similar to study from 07/22/2020. If hemoptysis persists a CT of the thorax may be helpful for further evaluation. [facility], [place] NAME: CLIVE DAVIDSON [facility] REC#: [id number] PT STATUS: REG ER : 1955 PHYSICIAN: FLEX CHAUHAN MD ADMIT DATE: 01/03/21/ER Signed Date of Exam:01/03/21 CHEST 1 VIEW, AP/PA ONLY INDICATION: Hemoptysis Upright portable chest shows normal heart size and vascularity. The lungs are clear. There is no effusion or pneumothorax. There is no bony abnormality. IMPRESSION: No acute abnormality is seen. The chest is similar to a study from 07/22/2020. If hemoptysis persists, a CT of the thorax may be helpful for further evaluation. Dictated by: Dictated on workstation # [id number] Dict: 01/03/21 1058 Trans: 01/03/21 1127 CVB [id number] Interpreted by: TOMMY MCGEE MD Electronically signed by: TOMMY MCGEE MD 01/03/211126 Reviewed: Reviewed by Md Diagonstic Imaging: CT (Angiogram) Plain Films/CT/US/NM/MRI: chest Comments [facility] [place] NAME: CLIVE DAVIDSON [facility] REC#: [id number] PT STATUS: REG ER : 1955 PHYSICIAN: FLEX CHAUHAN MD ADMIT DATE: 01/03/21/ER Draft Date of Exam:01/03/21 CT ANGIO CHEST W PROCEDURE: CT angiography of the chest with contrast. TECHNIQUE: Multiple contiguous axial images were obtained through the chest after uneventful bolus administration of intravenous contrast. 3D reconstructed CTA MIP acquisitions were also performed. Auto Exposure Controls were utilized during the CT exam to meet ALARA standards for radiation dose reduction. INDICATION: Bronchoscopy 10 days ago with hemoptysis. Compared with noncontrasted chest CT 08/03/2020. FINDINGS: There are no intraluminal pulmonary arterial filling defects. No findings of PE. No vascular malformation. There is no contrast extravasation. There is dilatation of the aortic root at the sinus of Valsalva cardiac motion likely exaggerates its measured dimension of 4.6 cm. The ascending aorta is normal in caliber 3.7 cm, the arch and descending aorta normal. No mural hemorrhage, dissection, rupture, mediastinal or pericardial hemorrhage or fluid. There is no pleural effusion. There is no pneumothorax. Some areas of subpleural fibrosis in the lung bases greater than upper lobes chronic. No intracardiac chamber mass or thrombus. There is a tiny hiatal hernia chronic. The upper abdomen showed no acute finding. IMPRESSION: Chronic changes in the lungs are stable. No PE or acute vascular pathology. Aortic root dilatation at the sinus of Valsalva measures 4.6 cm but likely exaggerated by cardiac motion. Remaining aorta is unremarkable. No acute finding identified. Dictated on workstation # [id number] Dict: 01/03/21 1251 Trans: 01/03/21 1259 CVB [id number] Interpreted by: MARIA A MCKAY Electronically signed by: Reviewed: Reviewed by Me Departure Impression Primary Impression: Hemoptysis Additional Impression: S/P bronchoscopy with biopsy Disposition: HOME, SELF-CARE Condition: Stable (ERASED) Departure-Patient Inst. Decision time for Depature: 13:33 Referrals: JEREMY VÁZQUEZ DO (PCP/Family) Primary Care Physician Patient Instructions: Coughing up Blood Add. Discharge Instructions: You should expect over the next several days for the amount of blood coughed up to decrease. If it is getting worse then I would not request during the day you call the associate professor of geography for instructions. After hours you may return to the nearest ER. Promptly return to the ER if you are having chest pain, shortness of air or other worrisome symptoms. If you are not seeing any improvement or worsening for more than a week then you should also follow-up with your associate professor of geography. All discharge instructions reviewed with patient and/or family. Voiced understanding. Copy Copies To 1: JEREMY VÁZQUEZ TITUS J Jan 03, 2021 10:27
[2021-01-03] MEDS ORDERED: NS IV 1000 ML 1,000 ML IV SCH (10:45)
[2021-01-03 10:53] LABS: BASOPHILS # (AUTO) 0.1 10^3/uL (0.0-0.1); BASOPHILS % (AUTO) 1 % (0-10); EOSINOPHILS % (AUTO) 0 % (0-10); HEMATOCRIT 45 % (40-54); HEMOGLOBIN 16.1 g/dL (13.3-17.7); LYMPHOCYTES # (AUTO) 1.4 10^3/uL (1.0-4.0); LYMPHOCYTES % (AUTO) 14 % (12-44); MEAN CORPUSCULAR HEMOGLOBIN 32 pg (25-34); MEAN CORPUSCULAR HGB CONC 36 g/dL (32-36); MEAN CORPUSCULAR VOLUME 89 fL (80-99); MONOCYTES # (AUTO) 0.6 10^3/uL (0.0-1.0); MONOCYTES % (AUTO) 6 % (0-12); NEUTROPHILS % (AUTO) 79 % (42-75); PLATELET COUNT 286 10^3/uL (130-400); WHITE BLOOD COUNT 10.1 10^3/uL (4.3-11.0)
[2021-01-03 11:04] LABS: ALBUMIN 4.1 GM/DL (3.2-4.5)
[2021-01-03 11:06] LABS: CALCIUM 9.7 MG/DL (8.5-10.1); INR 0.9 (0.8-1.4); PROTHROMBIN TIME PATIENT 12.8 SEC (12.2-14.7)
[2021-01-03 11:07] LABS: TOTAL PROTEIN 7.4 GM/DL (6.4-8.2)
[2021-01-03 11:09] LABS: BILIRUBIN,TOTAL 0.5 MG/DL (0.1-1.0)
[2021-01-03 11:11] LABS: CREATININE SERUM 0.71 MG/DL (0.60-1.30)
[2021-01-03] MEDS ORDERED: HOLD METFORMIN - RECEIVED CONTRAST 20 ML VIAL IV SCH (11:15)
[2021-01-03] MEDS ORDERED: NS 100 ML (IVPB) BAG IV ONE (11:15)
[2021-01-03] MEDS ORDERED: IOHEXOL 350 MG/ML 100 ML (OMNIPAQUE 350) VIAL IV ONE (11:15)
--- NOTE | 2021-01-03 12:33 | Diagnostic Imaging Report ---
INDICATION: Hemoptysis Upright portable chest shows normal heart size and vascularity. The lungs are clear. There is no effusion or pneumothorax. There is no bony abnormality. IMPRESSION: No acute abnormality is seen. The chest is similar to a study from 07/22/2020. If hemoptysis persists, a CT of the thorax may be helpful for further evaluation. Dictated by: Dictated on workstation # [id number]
--- NOTE | 2021-01-03 13:00 | Diagnostic Imaging Report ---
PROCEDURE: CT angiography of the chest with contrast. TECHNIQUE: Multiple contiguous axial images were obtained through the chest after uneventful bolus administration of intravenous contrast. 3D reconstructed CTA MIP acquisitions were also performed. Auto Exposure Controls were utilized during the CT exam to meet ALARA standards for radiation dose reduction. INDICATION: Bronchoscopy 10 days ago with hemoptysis. Compared with noncontrasted chest CT 08/03/2020. FINDINGS: There are no intraluminal pulmonary arterial filling defects. No findings of PE. No vascular malformation. There is no contrast extravasation. There is dilatation of the aortic root at the sinus of Valsalva cardiac motion likely exaggerates its measured dimension of 4.6 cm. The ascending aorta is normal in caliber 3.7 cm, the arch and descending aorta normal. No mural hemorrhage, dissection, rupture, mediastinal or pericardial hemorrhage or fluid. There is no pleural effusion. There is no pneumothorax. Some areas of subpleural fibrosis in the lung bases greater than upper lobes chronic. No intracardiac chamber mass or thrombus. There is a tiny hiatal hernia chronic. The upper abdomen showed no acute finding. IMPRESSION: Chronic changes in the lungs are stable. No PE or acute vascular pathology. Aortic root dilatation at the sinus of Valsalva measures 4.6 cm but likely exaggerated by cardiac motion. Remaining aorta is unremarkable. No acute finding identified. Dictated by: Dictated on workstation # [id number]
[2021-01-03 13:44] VITALS: BP 145/93
== END 2021-01-03 13:44 | disposition home or self-care (01) ==
LOC: EDUNIT# 09:50 → ER 09:55
DX: R04.2 Hemoptysis (principal); Z48.813 Encounter for surgical aftercare following surgery on the respiratory system; Z87.891 Personal history of nicotine dependence
CPT/HCPCS: 36415; 71045; 71275; 80053; 85025; 85610; 85730

== ENCOUNTER 2021-02-25 12:51 | Outpatient (CLI) | payer BC | END 2021-02-25 13:07 | LOC: SLEEP 12:51 | PROVIDERS: ATTEND Internal Medicine Critical Care Medicine | DX: G47.33 Obstructive sleep apnea (adult) (pediatric) (principal) | CPT/HCPCS: G0399 ==

== ENCOUNTER → 2021-04-20 | Outpatient (CLI) | payer BC ==
--- NOTE | 2021-04-20 09:31 | Diagnostic Imaging Report ---
Indication: Idiopathic pulmonary fibrosis. TIME OF EXAM: 9:07 AM Correlation is made with prior chest 07/22/2020 Heart size stable. There is chronic elevation right hemidiaphragm. There is some mild basilar interstitial changes. No parenchymal consolidation is seen. There is no effusion or pneumothorax. IMPRESSION: Mild basilar interstitial changes. No acute feature is detected. Dictated by: Dictated on workstation # [id number]
== END ==
LOC: RT 08:55
PROVIDERS: ATTEND Internal Medicine Critical Care Medicine
DX: J84.112 Idiopathic pulmonary fibrosis (principal); J67.9 Hypersensitivity pneumonitis due to unspecified organic dust
CPT/HCPCS: 71046; 94060; 94621; 94726; 94729

== ENCOUNTER → 2022-07-04 | Outpatient (CLI) | payer BC, MEDICARE ==
--- NOTE | 2022-07-04 15:57 | Diagnostic Imaging Report ---
INDICATION: Idiopathic pulmonary fibrosis. COMPARISON: 04/20/2021. TECHNIQUE: Frontal and lateral radiographs of the chest dated 07/04/2022. FINDINGS: The cardiac silhouette is within normal limits in size. No significant pulmonary vascular congestion. Prominence of the pulmonary interstitium, particularly within the lung bases is again identified. This appears relatively similar to the prior examination. No new focal pulmonary opacity. No pleural effusion. No pneumothorax. Stable mild elevation of the right hemidiaphragm. No acute osseous abnormality. IMPRESSION: Stable mild bibasilar interstitial lung changes, likely related to scarring and fibrosis. No new superimposed acute cardiopulmonary abnormality. Dictated by: Dictated on workstation # [id number]
== END ==
LOC: RAD 11:00
PROVIDERS: ATTEND Internal Medicine Critical Care Medicine
DX: J84.112 Idiopathic pulmonary fibrosis (principal); J67.9 Hypersensitivity pneumonitis due to unspecified organic dust; R09.02 Hypoxemia; J84.9 Interstitial pulmonary disease, unspecified
CPT/HCPCS: 71046

== ENCOUNTER → 2022-11-16 | Outpatient (CLI) | payer BC ==
--- NOTE | 2022-11-16 17:37 | Diagnostic Imaging Report ---
EXAMINATION: Left foot radiographs, 3 views. COMPARISON: None. HISTORY: 67-year-old male, left foot pain. FINDINGS: There is a calcaneal heel spur. There is very mild degenerative type enthesopathy at the Achilles tendon insertion. There is no identified acute fracture. There is no subluxation or dislocation. The joint spaces are well preserved. There is benign productive bone formation at the base of the fifth metatarsal. IMPRESSION: 1. Calcaneal heel spur. 2. No acute bony abnormality of the left foot. 3. Well-preserved joint spaces. Dictated by: Dictated on workstation # [id number]
== END ==
LOC: RAD 16:25
PROVIDERS: ATTEND Internal Medicine
DX: M77.32 Calcaneal spur, left foot (principal)
CPT/HCPCS: 73630

== ENCOUNTER → 2023-01-11 | Outpatient (CLI) | payer BC ==
--- NOTE | 2023-01-11 14:58 | Diagnostic Imaging Report ---
INDICATION: Chronic cough. Comparison is made with prior examination of 07/04/2022. PA and lateral views were obtained. FINDINGS: The heart size is normal. Mediastinum is unremarkable. There is some elevation of the right hemidiaphragm. There is no pleural effusion or pneumothorax. There is no lobar pneumonia. There is chronic appearing bibasilar interstitial prominence. IMPRESSION: Chronic appearing bibasilar interstitial prominence likely reflecting scarring and fibrosis. No other acute cardiopulmonary abnormality. Dictated by: Dictated on workstation # [id number]
== END ==
LOC: RAD 11:08
PROVIDERS: ATTEND Internal Medicine Critical Care Medicine
DX: J84.10 Pulmonary fibrosis, unspecified (principal)
CPT/HCPCS: 71046

== ENCOUNTER → 2023-02-19 | Outpatient (CLI) | payer BC ==
[~2023-02-19] MED LIST changes: +REGADENOSON 0.4 MG/5 ML SYR IV ONE; -RT-ALBUTEROL SULF 2.5 MG/3 ML PRE-MIX VIAL INH ONE
[2023-02-19] MEDS: CATHETER FLUSH 10 ML SYR IVP PRN ×2 (07:23→08:06)
[2023-02-19 08:05] VITALS: BP 123/76
--- NOTE | 2023-02-19 16:26 | Cardiology Stress Test Report ---
Stress Test Report Date of Procedure/Referring: Date of Procedure: Feb 19, 2023 PCP Jeremy Staples DO Admitting Physician Admitting Physician: Attending Physician: Jeremy Staples DO Baseline Vital Signs Vital Signs Date Time Temp Pulse Resp B/P (MAP) Pulse Ox O2 Delivery O2 Flow Rate FiO2 02/19/23 08:05 60 123/76 (92) Summary: Patient receive a resting and stress dose of Myoview, images were acquired and reviewed in the short axis view, horizontal long axis view and vertical long axis view. TID: 1.13 SSS: 2 SDS: 2 EF: 63 No significant ischemia or infarction noted on SPECT images Normal left ventricular size, ejection fraction 63% Copy Copies To 1: JEREMY STAPLES BASHAR J MD Feb 19, 2023 16:26
== END ==
LOC: CARD 06:45
PROVIDERS: ATTEND Internal Medicine
DX: J84.112 Idiopathic pulmonary fibrosis (principal); I71.21 Aneurysm of the ascending aorta, without rupture; I25.118 Atherosclerotic heart disease of native coronary artery with other forms of angina pectoris
CPT/HCPCS: 78452; 93017; A9502